=== PATIENT | female | born 1965 | race Caucasian/White ===

== ENCOUNTER 2016-10-13 18:40 | Emergency (ER) | payer BC, OTHER ==
[2016-10-13 18:50] VITALS: RESP 18
--- NOTE | 2016-10-13 19:26 | EDPHY ---
General Narrative: CHIEF COMPLAINT: Headache, laceration HISTORY OF PRESENT ILLNESS: REVIEW OF SYSTEMS: Ten systems reviewed and are negative unless otherwise noted in the HPI EXAMINATION General Appearance: Alert, no distress Head: normocephalic. 1.5 cm laceration of the forehead, midline Longitudinal. No foreign body. No visualization of the galea or skull Eyes: Pupils equal and round, no conjunctival pallor or injection ENT, Mouth: Mucous membranes moist Neck: Normal inspection, supple, non-tender Respiratory: no retractions or distress Cardiovascular: regular rate. Pulses intact distally. Back: non-tender, no bony abnormalities Neurological: A&O, nonfocal, normal gait Skin: Warm and dry, no rash Extremities: Nontender, no pedal edema Psychiatric: Mood and affect normal DIFFERENTIAL DIAGNOSES: Including but not limited to MDM: 7:25 p.m. forehead hematoma after moderate blunt trauma to the head. There is a facial hematoma with small laceration. Difficult to fully address the wound has does have clotted blood. I have injected topical anesthesia we can clean and I will re-evaluate the wound. CT scan has been ordered due to moderate mechanism with severe headache and hematoma present. There is no Rodriges sign, raccoon eyes or depression. 8:30 p.m. notified by Radiology of the CT scan of the head is normal. I have closed the laceration without complication. I have discussed wound care. She is to return here Thursday or Thursday for suture removal. Tetanus is up-to-date as of today now. work note provided for tomorrow. 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 She verbalized understanding of this. Discharged home neurovascular intact in stable condition PROCEDURE: Laceration repair Consent: Verbal Location: Forehead Length of repair: 1.5 cm Complexity: simple Layer involvement: single Anesthesia: local, 5 mL of lidocaine 1% with epinephrine Irrigation: Extensive Debridement: none Procedure description: after anesthesia the wound bed was irrigated and explored. No foreign body. Wound was closed with 6-0 Prolene with good approximation and good hemostasis. Tolerated well. No complications. Suture/Staple material: 6-0 Prolene, 3 simple interrupted sutures. Wound care: Routine as discussed Suture/Staple removal: 5-7 Days SUPERVISION: This patient was independently evaluated without the aide of supervising physician. - History Smoking Status: Never smoked - Objective Vital Signs: Initial Vital Signs Temperature (C) 98.1 F 10/13/16 18:45 Heart Rate 109 H 10/13/16 18:45 Respiratory Rate 18 10/13/16 18:45 Blood Pressure 153/108 H 10/13/16 18:45 O2 Sat (%) 97 10/13/16 18:45 O2 Delivery Mode Room Air Allergies/Adverse Reactions: mushroom Allergy (Verified 10/13/16 18:45) Sulfa (Sulfonamide Antibiotics) Allergy (Verified 10/13/16 18:45) Home Medications: Medication Instructions Recorded NK [No Known Home Meds] 10/13/16 Medications Given: Discontinued Medications Diphtheria/Tetanus/Acell Pertussis (Boostrix) 0.5 ml IM .ONCE ONE Stop: 10/13/16 19:29 Last Admin: 10/13/16 19:34 Dose: 0.5 ml Departure - Departure Disposition: Home, Routine, Self-Care Clinical Impression: Closed head injury Qualifiers: Encounter type: initial encounter Qualified Code(s): S09.90XA - Unspecified injury of head, initial encounter Forehead laceration Qualifiers: Encounter type: initial encounter Qualified Code(s): S01.81XA - Laceration without foreign body of other part of head, initial encounter Condition: Good Instructions: Hydrocodone/Acetaminophen (By mouth), Care For Your Stitches (ED) , Head Injury (ED) Additional Instructions: follow-up with primary care physician and Dr. Moffett for further care. Return to ER for worsening pain, vomiting or weakness Referrals: Krista Moffett MD [Medical Doctor] - As per Instructions Stand Alone Forms: Work Excuse
[2016-10-13] MEDS ORDERED: TDAP ADULT 0.5 ML INJ (BOOSTRIX) IM ONE (19:28)
[2016-10-13] MEDS ORDERED: HYDROCOD/APAP 5/325 PREPACK#6 BTL TAKEHOME ONE (20:25)
[2016-10-13] MEDS ORDERED: HYDROCODONE/APAP 5/325 TAB PO ONE (20:25)
[2016-10-13 20:42] VITALS: BP 130/90; PULSE 92; TEMP 98.2; O2SAT 96
== END 2016-10-13 20:43 | disposition home or self-care (01) ==
PROC: 0HQ1XZZ Repair Face Skin, External Approach (ICD-10-PCS; principal; 2016-10-13)
DX: S01.81XA Laceration without foreign body of other part of head, initial encounter (principal); Z23 Encounter for immunization; W22.8XXA Striking against or struck by other objects, initial encounter

== ENCOUNTER 2016-10-15 09:05 | Emergency (ER) | payer OTHER ==
--- NOTE | 2016-10-15 09:16 | CPEKG ---
Heart Rate: 104 RR Interval: 577 P-R Interval: 156 QRSD Interval: 104 QT Interval: 348 QTC Interval: 458 P Remlap: 37 QRS Remlap: -34 T Wave Remlap: 36 EKG Severity - OTHERWISE NORMAL ECG - EKG Impression: SINUS TACHYCARDIA EKG Impression: LEFT AXIS DEVIATION Electronically Signed By: Aravind Ayala 15-Oct-2016 12:12:50
[2016-10-15] MEDS ORDERED: LORazepam 2 MG/ML INJ IVP ONE ×2 (09:40→11:39)
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
[2016-10-15 11:04] VITALS: RESP 18
[2016-10-15] MEDS ORDERED: *PHM DO NOT USE-LORazepam 1 MG/ML IV NEWBORN SYR IV ONE (11:36)
[2016-10-15] MEDS ORDERED: LORazepam 2 MG/ML INJ ONE (11:37)
[2016-10-15 11:41] LABS: % IMMATURE GRANULYOCYTES 0.3 % (0.0-1.1); ABSOLUTE IMMATURE GRANULOCYTES 0.03 10^3/uL (0.00-0.10); ADD DIFF? NO; ADD MORPH? NO; ADD SCAN? NO; ATYPICAL LYMPHOCYTE FLAG 0 (0-99); FRAGMENT RBC FLAG 0 (0-99); LEFT SHIFT FLG 0 (0-99); LIPEMIA HEMOLYSIS FLAG 80 (0-99); MEAN CELL HEMOGLOBIN 28.1 pg (27.9-34.1); MEAN CELL HEMOGLOBIN CONCENTR. 32.7 g/dL (32.4-36.7); MEAN PLATELET VOLUME 9.9 fL (8.7-11.7); PLATELET CLUMPS FLAG 10 (0-99); PLATELET COUNT 483 10^3/uL (150-400); RED CELL DISTRIBUTION WIDTH 13.6 % (11.5-15.2)
[2016-10-15 11:47] LABS: ALANINE AMINOTRANSFERASE 70 IU/L (9-52); ALBUMIN 4.8 g/dL (3.5-5.0); ALKALINE PHOSPHATASE 133 IU/L (38-126); ANION GAP 14 mEq/L (8-16); ASPARTATE AMINOTRANSFERASE 58 IU/L (14-46); BILIRUBIN,TOTAL 0.9 mg/dL (0.1-1.4); CALCIUM 10.2 mg/dL (8.5-10.4); CARBON DIOXIDE 23 mEq/l (22-31); CHLORIDE 105 mEq/L (97-110); CREATININE 0.8 mg/dL (0.6-1.0); GLOMERULAR FILTRATION RATE > 60; GLUCOSE 104 mg/dL (70-100); POTASSIUM 4.6 mEq/L (3.5-5.2); SODIUM 142 mEq/L (134-144); TOTAL PROTEIN 8.7 g/dL (6.3-8.2)
[2016-10-15 12:38] VITALS: BP 120/78; PULSE 95; TEMP 97.5; O2SAT 98
== END 2016-10-15 12:38 | disposition home or self-care (01) ==
DX: F41.9 Anxiety disorder, unspecified (principal)
CPT/HCPCS: 96374

== ENCOUNTER 2016-10-19 03:42 | Emergency (ER) | payer OTHER ==
--- NOTE | 2016-10-19 03:53 | EDPHY ---
H & P HPI/ROS: HPI CHIEF COMPLAINT: Ongoing headache, nausea, vomiting, mood swings, anxiety HISTORY OF PRESENT ILLNESS: This patient 51-year-old female significant past medical history for anxiety, was recently here in the emergency room on October 13 after she sustained a head injury. She had her head and door frame. She had a CT scan at that time of her head without any acute intracranial abnormality she had her forehead laceration repaired with sutures. She presents back here in the emergency room at 4 o'clock in the morning with ongoing nausea, blurry vision, mood swings, intermittent vomiting and anxiety. She is concerned she may have a concussion. Of note upon arrival here in the emergency room she appears well nontoxic no acute distress she has a normal neurological exam. She is complaining of anxiety. Past Medical History: Anxiety Past Surgical History: No recent surgical history Social History: Denies daily use drugs alcohol tobacco products Family History: Noncontributory ROS REVIEW OF SYSTEMS: A comprehensive 10 point review of systems is otherwise negative aside from elements mentioned in the history of present illness. Exam Constitutional triage nursing summary reviewed, vital signs reviewed, awake/ alert. Eyes normal conjunctivae and sclera, EOMI, PERRLA. HENT head/neck: midline vertical incision forehead with sutures in place clean dry and intact, otherwise unremarkable normal inspection, atraumatic, moist mucus membranes, no epistaxis, neck supple/ no meningismus, no raccoon eyes. Respiratory clear to auscultation bilaterally, normal breath sounds, no respiratory distress, no wheezing. Cardiovascular rate normal, regular rhythm, no murmur, no edema, distal pulses normal. Gastrointestinal soft, non-tender, no rebound, no guarding, normal bowel sounds, no distension, no pulsatile mass. Genitourinary no CVA tenderness. Musculoskeletal no midline vertebral tenderness, full range of motion, no calf swelling, no tenderness of extremities, no meningismus, good pulses, neurovascularly intact. Skin pink, warm, & dry, no rash, skin atraumatic. Neurologic awake, alert and oriented x 3, AAOx3, moves all 4 extremities equally, motor intact, sensory intact, CN II-XII intact, normal cerebellar, normal vision, normal speech. Psychiatric normal mood/affect. Heme/Lymph/Immune no lymphadenopathy. Differential Diagnosis: includes but is not limited to in a particular order, closed-head injury, concussion, intracranial bleed, nausea vomiting mood swings blurry vision from a closed head injury with concussion Medical Decision Making: plan for this patient should be given p.o. Zofran for nausea, p.o. Ativan 1 mg for anxiety, ibuprofen 800 mg for headache. I explained most likely her symptoms are consistent with concussion like symptoms. She does tell me she has a bad headache for this reason I will do a CT scan of her head giving ongoing headache nausea vomiting to make sure she does not have a evidence of a delayed bleed. It is noted her neurological exam is unremarkable. Re-evaluation: CT scan of the head without IV contrast The results of the study are this is negative for acute intracranial abnormality specifically no bleed The study was read by Dr. Castro. I viewed the images myself on the PACS system. 0437: Re-evaluation at this time this patient is resting comfortably no acute distress. Feels better after 1 mg p.o. Ativan, Zofran and ibuprofen. CT scan shows no acute intracranial abnormality her neurological exam is unremarkable. Her symptoms are consistent with a concussion or closed head injury. I do recommend she follows up with concussion specialist. I referred her to this. Will also give her prescription for nausea medicine. She understands return to the ER she develops any worsening symptoms questions or concerns. 0440: is also noted this patient had sutures placed approximately 6 days ago. She is requesting that we remove them today as there due to come out tomorrow and she would not want come back again to the emergency room to have them out. I did evaluate her midline vertical laceration in her forehead the wound is clean, dry, and intact. It is okay to have the sutures removed at this time. Source: Patient - Medical/Surgical History Hx Asthma: No Hx Chronic Respiratory Disease: No Hx Diabetes: No Hx Cardiac Disease: No Hx Renal Disease: No Hx Cirrhosis: No Hx Alcoholism: No Hx HIV/AIDS: No Hx Splenectomy or Spleen Trauma: No Other PMH: PMH: kidney stones, bronchitis,. PSH: stephen, tubal ligation - Social History Smoking Status: Never smoked Constitutional: Initial Vital Signs Temperature (C) 36.8 C 10/19/16 03:50 Heart Rate 106 H 10/19/16 03:50 Respiratory Rate 22 H 10/19/16 03:50 Blood Pressure 118/91 H 10/19/16 03:50 O2 Sat (%) 94 10/19/16 03:50 O2 Delivery Mode Room Air Allergies/Adverse Reactions: adhesive Allergy (Verified 10/19/16 03:49) mushroom Allergy (Verified 10/15/16 09:07) Sulfa (Sulfonamide Antibiotics) Allergy (Verified 10/15/16 09:07) Home Medications: Medication Instructions Recorded Ondansetron HCl [Zofran] 4 mg PO Q4-6PRN PRN #10 tablet 10/19/16 Medical Decision Making - Data Points Medications Given: Discontinued Medications Ibuprofen (Motrin) 800 mg PO EDNOW ONE Stop: 10/19/16 04:09 Last Admin: 10/19/16 04:16 Dose: 800 mg Lorazepam (Ativan) 1 mg PO ONCE ONE Stop: 10/19/16 04:09 Last Admin: 10/19/16 04:16 Dose: 1 mg Ondansetron HCl (Zofran Odt) 4 mg PO EDNOW ONE Stop: 10/19/16 04:09 Last Admin: 10/19/16 04:16 Dose: 4 mg Departure - Departure Disposition: Home, Routine, Self-Care Clinical Impression: Concussion Qualifiers: Encounter type: initial encounter Loss of consciousness presence/duration: without LOC Qualified Code(s): S06.0X0A - Concussion without loss of consciousness, initial encounter Head injury Qualifiers: Encounter type: initial encounter Qualified Code(s): S09.90XA - Unspecified injury of head, initial encounter Condition: Good Instructions: Concussion (ED) Referrals: NONE *PRIMARY CARE P,. [Primary Care Provider] - As per Instructions Krista Moffett MD [Medical Doctor] - As per Instructions Prescriptions: Ondansetron HCl [Zofran] 4 mg PO Q4-6PRN PRN #10 tablet PRN Reason: Nausea/Vomiting, Use 1st
[2016-10-19 03:55] VITALS: BP 118/91; PULSE 106; RESP 22; TEMP 98.2; O2SAT 94
[2016-10-19] MEDS ORDERED: LORazepam 1 MG TAB PO ONE (04:08)
[2016-10-19] MEDS ORDERED: ONDANSETRON DISINTEGRATING 4 MG TAB PO ONE (04:08)
[2016-10-19] MEDS ORDERED: IBUPROFEN 200 MG TAB PO ONE (04:08)
== END 2016-10-19 04:54 | disposition home or self-care (01) ==
DX: S06.0X0D Concussion without loss of consciousness, subsequent encounter (principal); X58.XXXD Exposure to other specified factors, subsequent encounter

== ENCOUNTER 2016-10-31 13:23 | Emergency (ER) | payer OTHER ==
[2016-10-31 13:30] VITALS: TEMP 98.1
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
[2016-10-31] MEDS ORDERED: IBUPROFEN 600 MG TAB PO ONE ×2 (13:47→13:49)
[2016-10-31] MEDS ORDERED: SILVER SULFADIAZINE 50 GM JAR TP ONE (13:58)
[2016-10-31 14:24] VITALS: BP 126/94; PULSE 88; RESP 16; O2SAT 94
== END 2016-10-31 14:23 | disposition home or self-care (01) ==
DX: T24.101A Burn of first degree of unspecified site of right lower limb, except ankle and foot, initial encounter (principal); L03.115 Cellulitis of right lower limb; X76.XXXA Intentional self-harm by smoke, fire and flames, initial encounter

== ENCOUNTER → 2017-01-22 | Outpatient (CLI) | payer OTHER | LOC: BMCIMAGING 15:36 | PROVIDERS: ATTEND Podiatrist Foot & Ankle Surgery | DX: M79.671 Pain in right foot (principal); M77.31 Calcaneal spur, right foot ==

== ENCOUNTER 2017-04-26 09:32 | Emergency (ER) | payer OTHER ==
--- NOTE | 2017-04-26 11:24 | EDPHY ---
H & P Smoking Status: Never smoked Time Seen by Provider: 04/26/17 09:49 HPI/ROS: CHIEF COMPLAINT: Right ankle pain HISTORY OF PRESENT ILLNESS: 51-year-old female presents to the emergency department with pain in her right ankle. She has known heel spurs and has had cortisone injections. She states that she is having physical therapy and had some type of electrode patch that was placed to the lateral aspect of her right ankle about 3 weeks ago and she thinks that this may be causing now pain in her right ankle. She denies any known trauma or injury although it started abruptly while she was working walking down some stairs. ROS: Denies pain in her right calf. Denies pain in her knee or hip. (Alannahcody Kelly Holcomb) Past Medical/Surgical History: Kidney stones, bronchitis, cholecystectomy, tubal ligation (Lena Evansmandy Holcomb) Social History: Single and lives in [place] (Lena Evansmandy Holcomb) Physical Exam: On examination mild swelling noted to the lateral aspect of her right ankle. There is no redness or warmth or signs of infection. No signs of cellulitis. She has full range of motion of her right ankle although does have some pain with inversion of the ankle. No obvious ligament instability. No signs of septic joint. Normal sensation to light touch with normal 2 point discrimination. Strong dorsalis pedis pulse on the dorsal aspect of the right foot. (Jacklyn Evansa Zhang) Constitutional: Initial Vital Signs Temperature (C) 37.2 C 04/26/17 09:35 Heart Rate 83 04/26/17 09:35 Respiratory Rate 18 04/26/17 09:35 Blood Pressure 126/88 H 04/26/17 09:35 O2 Sat (%) 97 04/26/17 09:35 O2 Delivery Mode Room Air Allergies/Adverse Reactions: adhesive Allergy (Mild, Verified 04/26/17 09:40) blistering at site mushroom Allergy (Mild, Verified 04/26/17 09:40) GI upset Sulfa (Sulfonamide Antibiotics) Allergy (Mild, Verified 04/26/17 09:40) Rash Home Medications: Medication Instructions Recorded NK [No Known Home Meds] 04/26/17 MDM/Departure - MDM Imaging: I viewed and interpreted images myself - MDM Procedures: Patient was placed in Velcro ankle stirrup splint and examined post application in 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 (Klely Evans) ED Course/Re-evaluation: Velcro ankle stirrup splint for comfort and support. Ice and elevate to help relieve swelling. Ibuprofen 600 mg every 8 hours as needed for pain. Follow up with orthopedic surgeon this week to recheck. (Kelly Evans) The patient was evaluated and managed by the Physician Cane Loader/ Nurse Practitioner. My co-signature indicates that I have reviewed this chart and I agree with the findings and plan of care as documented. I am the secondary supervising physician. (Gabriela Del Real) - Depart Disposition: Home, Routine, Self-Care Clinical Impression: Right ankle sprain Qualifiers: Encounter type: initial encounter Involved ligament of ankle: unspecified ligament Qualified Code(s): S93.401A - Sprain of unspecified ligament of right ankle, initial encounter Condition: Good Instructions: Ankle Sprain (ED) Additional Instructions: Ibuprofen 600 mg every 8 hours as needed for pain. Weightbear as tolerated. Follow up with orthopedic surgeon this week to recheck. Return if he developed increased swelling, redness or warmth, or any other concerns. Stand Alone Forms: Work Excuse Referrals: Johnny Vega MD [Medical Doctor] - 5-7 days, call for appt. (Orthopedic surgeon on-call)
[2017-04-26 11:31] VITALS: BP 113/80; PULSE 78; RESP 16; TEMP 97.9; O2SAT 95
== END 2017-04-26 11:45 | disposition home or self-care (01) ==
DX: S93.401A Sprain of unspecified ligament of right ankle, initial encounter (principal); X58.XXXA Exposure to other specified factors, initial encounter
CPT/HCPCS: L4350

== ENCOUNTER 2017-05-08 23:22 | Emergency (ER) | payer OTHER ==
[2017-05-08 23:28] VITALS: RESP 18; O2SAT 96
[2017-05-09] MEDS ORDERED: LIDOCAINE 5% 1 EA PATCH TD ONE
--- NOTE | 2017-05-09 00:04 | EDPHY ---
H & P Stated Complaint: LOWER BACK INJURY Time Seen by Provider: 05/08/17 23:43 HPI/ROS: HPI The patient presents with lower back pain which began at approximately 9:00 p.m. 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 She had acute onset of lower back pain which has been constant ever since, worse with movement, it radiates down her right leg to her knee. She denies any numbness, tingling, urinary or bowel incontinence, weakness of the leg. She does have a prior history of sciatica. She saw a chiropractor just yesterday for this. She has been taking ibuprofen and Aleve for pain. Just prior to arrival she took [employer] and drink a beer to help her pain. REVIEW OF SYSTEMS Constitutional: No fever, no chills. Eyes: No discharge. ENT: No sore throat. Cardiovascular: No chest pain, no palpitations. Respiratory: No cough, no shortness of breath. Gastrointestinal: No abdominal pain, no vomiting. Genitourinary: No hematuria. Musculoskeletal: Positive for back pain. Skin: No rashes. Neurological: No headache. PMHx: Sciatica PHYSICAL General Appearance: Alert, no distress Eyes: Pupils equal and round no pallor or injection ENT, Mouth: Mucous membranes moist Respiratory: Breathing comfortably Back: There is tenderness at L4-L5 at the midline and in the paraspinal region on the left which continues to her sciatic notch Neurological: A&O, negative straight leg raise, sensation is intact to light touch to her lower extremities bilaterally, she has 5/5 strength of her lower extremities which is symmetric Skin: Warm and dry, no rashes Musculoskeletal: Neck is supple non tender Extremities: symmetrical, full range of motion Psychiatric: Patient is oriented X 3, there is no agitation Source: Patient Exam Limitations: No limitations - Personal History LMP (Females 10-55): Over 28 Days Ago Current Tetanus/Diphtheria Vaccine: Yes Tetanus Vaccine Date: 10/13/16 - Medical/Surgical History Hx Asthma: No Hx Chronic Respiratory Disease: No Hx Diabetes: No Hx Cardiac Disease: No Hx Renal Disease: No Hx Cirrhosis: No Hx Alcoholism: No Hx HIV/AIDS: No Hx Splenectomy or Spleen Trauma: No Other PMH: PMH: kidney stones, bronchitis, anxiety,bone spurs R heel. PSH: stephen, tubal ligation - Social History Smoking Status: Never smoked Constitutional: Initial Vital Signs Temperature (C) 37.5 C 05/08/17 23:23 Heart Rate 94 05/08/17 23:23 Respiratory Rate 18 05/08/17 23:23 Blood Pressure 149/91 H 05/08/17 23:23 O2 Sat (%) 96 05/08/17 23:23 O2 Delivery Mode Room Air Allergies/Adverse Reactions: adhesive Allergy (Mild, Verified 04/26/17 09:40) blistering at site mushroom Allergy (Mild, Verified 04/26/17 09:40) GI upset Sulfa (Sulfonamide Antibiotics) Allergy (Mild, Verified 04/26/17 09:40) Rash Home Medications: Medication Instructions Recorded NK [No Known Home Meds] 04/26/17 Medical Decision Making Differential Diagnosis: This is a 51-year-old female with history of sciatica who presents with acute onset of lower back pain which radiates down her right leg since bending over to picker packer a cooler earlier this evening. She has no neurologic deficits on exam, has no red flag features. Differential diagnosis includes sciatica, disc herniation, muscle spasm. I doubt cauda equina. In the emergency department, the patient was given lidocaine transdermal patch is and Toradol with some improvement in her symptoms. We discussed treatment for lower back pain. She is already being followed by physical therapy. I have instructed her to take ibuprofen or Aleve with Tylenol around the clock for pain control, use rest, ice or heat. She will be discharged with follow up with her primary care doctor. Departure - Departure Disposition: Home, Routine, Self-Care Clinical Impression: Lower back pain Qualifiers: Chronicity: acute Back pain laterality: right Sciatica presence: with sciatica Sciatica laterality: sciatica of right side Qualified Code(s): M54.41 - Lumbago with sciatica, right side Condition: Good Instructions: Low Back Strain (ED), Lower Back Exercises (ED), Sciatica (ED) Referrals: Lora Beatty PA [Primary Care Provider] - As per Instructions
[2017-05-09] MEDS ORDERED: KETOROLAC 15 MG/1 ML SDV IVP ONE ×2 (00:09)
[2017-05-09] MEDS ORDERED: LIDOCAINE 5% 1 EA PATCH TD SCH (00:15)
[2017-05-09 01:03] VITALS: BP 113/83; PULSE 86; TEMP 98.1
[2017-05-09] MEDS ORDERED: PATCH REMOVAL 1 EA PATCH TD SCH ×2 (21:00)
== END 2017-05-09 01:04 | disposition home or self-care (01) ==
DX: M54.41 Lumbago with sciatica, right side (principal)
CPT/HCPCS: 96374; J1885

== ENCOUNTER 2017-07-01 00:37 | Emergency (ER) | payer SELFPAY ==
--- NOTE | 2017-07-01 00:43 | EDPHY ---
H & P HPI/ROS: HPI CHIEF COMPLAINT: "facial droop on left side, Drooling both sides of mouth" HISTORY OF PRESENT ILLNESS: This patient is a 51-year-old female significant past medical history for anxiety, previous head injury and sciatica she presents to the emergency room by private vehicle with 3 days of what she believes is a facial droop on left side and drooling out both sides of her mouth. Upon arrival to the emergency room she appears well nontoxic her neurological exam is unremarkable. All of her cranial nerves are intact. She has no focal numbness or tingling or weakness. As for her facial droop I do not appreciate any facial droop on exam. She is able to raise her eyebrows symmetrically, able does close her eyes very tightly an open them appropriately , able to have a good smile was symmetrical mouth opening. Additionally puff out her cheeks appropriately. She is not drooling on exam. There is no tongue deviation. Sensation is intact. No evidence of facial weakness or Lucas's palsy on exam. However the patient's nasal oral crease on the left is more prominent than the right. She tells me this is not normally like that. She denies any facial pain or trauma to her face or swelling. Denies dental pain. She denies any other neurological complaints. Specifically headache neck pain numbness or tingling focal weakness chest pain or shortness of breath. Past Medical History: Includes anxiety, head injury, sciatica Past Surgical History: Cholecystectomy, tubal Social History: Denies drugs alcohol tobacco. Family History: Noncontributory ROS REVIEW OF SYSTEMS: A comprehensive 10 point review of systems is otherwise negative aside from elements mentioned in the history of present illness. Exam Constitutional triage nursing summary reviewed, vital signs reviewed, awake/ alert. Eyes normal conjunctivae and sclera, EOMI, PERRLA. HENT normal inspection, atraumatic, moist mucus membranes, no epistaxis, neck supple/ no meningismus, no raccoon eyes. Respiratory clear to auscultation bilaterally, normal breath sounds, no respiratory distress, no wheezing. Cardiovascular rate normal, regular rhythm, no murmur, no edema, distal pulses normal. Gastrointestinal soft, non-tender, no rebound, no guarding, normal bowel sounds, no distension, no pulsatile mass. Genitourinary no CVA tenderness. Musculoskeletal no midline vertebral tenderness, full range of motion, no calf swelling, no tenderness of extremities, no meningismus, good pulses, neurovascularly intact. Skin pink, warm, & dry, no rash, skin atraumatic. Neurologic awake, alert and oriented x 3, AAOx3, moves all 4 extremities equally, motor intact, sensory intact, CN II-XII intact, normal cerebellar, normal vision, normal speech. Cranial nerves intact. Facial nerves intact. No facial weakness on exam. Sensation intact. The nasal oral fold on the left side of the mouth is more prominent on the left side of the face than right. Otherwise unremarkable exam. Psychiatric normal mood/affect. Heme/Lymph/Immune no lymphadenopathy. Differential Diagnosis: Includes but is not limited to in a particular order TIA, CVA, intracranial bleed, tumor, Lucas's palsy, infection of the face, facial fold asymmetry Medical Decision Making: Plan for this patient worse case scenarios rule out stroke, will proceed with MRI of the brain to rule out small infarct. However clinically on exam I do not see a significant stroke-like symptom. Will check basic blood work. Re-evaluate. Re-evaluation: 0404: Patient resting comfortably no acute distress. No progression of any neurological symptoms here in emergency room. I again do not appreciate any facial droop or weakness. Patient's MRI review to me by Dr. Landon Salomon. Negative for acute stroke or bleed. Essentially unremarkable MRI. Chronic right-sided maxillary sinus disease. I have updated patient about her MRI results she feels comfortable being discharged. She does understand return emergency room if she has any further symptoms worsening symptoms questions or concerns includes focal weakness numbness or tingling. Source: Patient - Personal History Tetanus Vaccine Date: 10/13/16 - Medical/Surgical History Hx Asthma: No Hx Chronic Respiratory Disease: No Hx Diabetes: No Hx Cardiac Disease: No Hx Renal Disease: No Hx Cirrhosis: No Hx Alcoholism: No Hx HIV/AIDS: No Hx Splenectomy or Spleen Trauma: No Other PMH: PMH: kidney stones, bronchitis, anxiety,bone spurs R heel. PSH: stephen, tubal ligation - Social History Smoking Status: Never smoked Constitutional: Initial Vital Signs Temperature (C) 36.9 C 07/01/17 00:39 Heart Rate 100 07/01/17 00:39 Respiratory Rate 18 07/01/17 00:39 Blood Pressure 121/98 H 07/01/17 00:39 O2 Sat (%) 95 07/01/17 00:39 O2 Delivery Mode Room Air Allergies/Adverse Reactions: adhesive Allergy (Mild, Verified 07/01/17 00:42) blistering at site mushroom Allergy (Mild, Verified 07/01/17 00:42) GI upset Sulfa (Sulfonamide Antibiotics) Allergy (Mild, Verified 07/01/17 00:42) Rash Home Medications: Medication Instructions Recorded NK [No Known Home Meds] 04/26/17 Medical Decision Making - Data Points Laboratory Results: Laboratory Results 07/01/17 01:19 07/01/17 01:19 07/01/17 07/01/17 01:19 01:19 WBC 9.03 10^3/uL 10^3/uL (3.80-9.50) RBC 5.06 10^6/uL 10^6/uL (4.18-5.33) Hgb 14.5 g/dL g/dL (12.6-16.3) Hct 42.9 % % (38.0-47.0) MCV 84.8 fL fL (81.5-99.8) MCH 28.7 pg pg (27.9-34.1) MCHC 33.8 g/dL g/dL (32.4-36.7) RDW 13.1 % % (11.5-15.2) Plt Count 345 10^3/uL 10^3/uL (150-400) MPV 9.6 fL fL (8.7-11.7) Neut % (Auto) 52.6 % % (39.3-74.2) Lymph % (Auto) 36.0 % % (15.0-45.0) Cataño % (Auto) 6.3 % % (4.5-13.0) Eos % (Auto) 3.8 % % (0.6-7.6) Baso % (Auto) 1.0 % % (0.3-1.7) Nucleat RBC Rel Count 0.0 % % (0.0-0.2) Absolute Neuts (auto) 4.75 10^3/uL 10^3/uL (1.70-6.50) Absolute Lymphs (auto) 3.25 10^3/uL H 10^3/uL (1.00-3.00) Absolute Monos (auto) 0.57 10^3/uL 10^3/uL (0.30-0.80) Absolute Eos (auto) 0.34 10^3/uL 10^3/uL (0.03-0.40) Absolute Basos (auto) 0.09 10^3/uL 10^3/uL (0.02-0.10) Absolute Nucleated RBC 0.00 10^3/uL 10^3/uL (0-0.01) Immature Gran % 0.3 % % (0.0-1.1) Immature Gran # 0.03 10^3/uL 10^3/uL (0.00-0.10) Sodium 142 mEq/L mEq/L (134-144) Potassium 3.8 mEq/L mEq/L (3.5-5.2) Chloride 105 mEq/L mEq/L (97-110) Carbon Dioxide 24 mEq/l mEq/l (22-31) Anion Gap 13 mEq/L mEq/L (8-16) BUN 13 mg/dL mg/dL (7-23) Creatinine 0.9 mg/dL mg/dL (0.6-1.0) Estimated GFR > 60 Glucose 95 mg/dL mg/dL (70-100) Calcium 9.4 mg/dL mg/dL (8.5-10.4) Medications Given: Discontinued Medications Lorazepam (Ativan Injection) 1 mg IVP EDNOW ONE Stop: 07/01/17 03:16 Last Admin: 07/01/17 03:15 Dose: 1 mg Departure - Departure Disposition: Home, Routine, Self-Care Clinical Impression: Facial pain Condition: Good Instructions: Atypical Facial Pain (ED) Additional Instructions: 1. Return emergency room if any worsening symptoms questions or concerns. Specifically return emergency room if you have numbness or tingling or weakness. Or new complaints. 2. Additionally follow up with her primary care doctor. Referrals: CONSTANTINE ARBOLEDA [Other] - As per Instructions
[2017-07-01 01:23] LABS: % IMMATURE GRANULYOCYTES 0.3 % (0.0-1.1); ABSOLUTE IMMATURE GRANULOCYTES 0.03 10^3/uL (0.00-0.10); ADD DIFF? NO; ADD MORPH? NO; ADD SCAN? NO; ATYPICAL LYMPHOCYTE FLAG 0 (0-99); FRAGMENT RBC FLAG 0 (0-99); HEMATOCRIT 42.9 % (38.0-47.0); HEMOGLOBIN 14.5 g/dL (12.6-16.3); LEFT SHIFT FLG 0 (0-99); LIPEMIA HEMOLYSIS FLAG 90 (0-99); MEAN CELL HEMOGLOBIN 28.7 pg (27.9-34.1); MEAN CELL HEMOGLOBIN CONCENTR. 33.8 g/dL (32.4-36.7); MEAN CELL VOLUME 84.8 fL (81.5-99.8); MEAN PLATELET VOLUME 9.6 fL (8.7-11.7); PLATELET CLUMPS FLAG 40 (0-99); PLATELET COUNT 345 10^3/uL (150-400); RED BLOOD CELL COUNT 5.06 10^6/uL (4.18-5.33); RED CELL DISTRIBUTION WIDTH 13.1 % (11.5-15.2)
[2017-07-01 01:42] LABS: ANION GAP 13 mEq/L (8-16); CALCIUM 9.4 mg/dL (8.5-10.4); CARBON DIOXIDE 24 mEq/l (22-31); CHLORIDE 105 mEq/L (97-110); CREATININE 0.9 mg/dL (0.6-1.0); GLOMERULAR FILTRATION RATE > 60; GLUCOSE 95 mg/dL (70-100); POTASSIUM 3.8 mEq/L (3.5-5.2); SODIUM 142 mEq/L (134-144)
[2017-07-01] MEDS ORDERED: LORazepam 2 MG/ML INJ ONE (03:04)
[2017-07-01] MEDS ORDERED: LORazepam 2 MG/ML INJ IVP ONE (03:15)
[2017-07-01 03:44] VITALS: RESP 16
[2017-07-01 04:19] VITALS: BP 123/88; PULSE 100; TEMP 99; O2SAT 92
== END 2017-07-01 04:18 | disposition home or self-care (01) ==
DX: R51 Headache (principal)
CPT/HCPCS: 96374; J2060

== ENCOUNTER 2017-11-25 06:04 | Emergency (ER) | payer OTHER ==
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
[2017-11-25] MEDS ORDERED: predniSONE 20 MG TAB PO ONE (06:20)
[2017-11-25] MEDS ORDERED: IPRATROPIUM/ALBUTEROL 3 ML DEYVIAL IH ONE (06:20)
[2017-11-25 07:22] VITALS: BP 126/80
== END 2017-11-25 07:22 | disposition home or self-care (01) ==
DX: J20.8 Acute bronchitis due to other specified organisms (principal)
CPT/HCPCS: J7512

== ENCOUNTER → 2017-12-31 | Outpatient (CLI) | payer OTHER | LOC: CIMAGING 12:47 | PROVIDERS: ATTEND Internal Medicine | DX: J40 Bronchitis, not specified as acute or chronic (principal); J98.11 Atelectasis; R10.11 Right upper quadrant pain | CPT/HCPCS: 71046-PO ==

== ENCOUNTER → 2018-01-22 | Outpatient (CLI) | payer OTHER | LOC: FIMAGING 13:58 | PROVIDERS: ATTEND Internal Medicine | DX: N20.0 Calculus of kidney (principal) ==

== ENCOUNTER 2018-03-08 12:24 | Observation (INO) | payer OTHER ==
[2018-03-08] MEDS ORDERED: NS 1,000 ML IV ONE ×2 (12:36→13:35)
--- NOTE | 2018-03-08 12:37 | EDPHY ---
General Time Seen by Provider: 03/08/18 12:34 Narrative: CHIEF COMPLAINT: UTI, flank pain HISTORY OF PRESENT ILLNESS: Patient presents with complaints of right flank pain and urinary tract infection. She says she has had some right flank pain over the past 1-2 weeks. It has been mild to moderate. It comes and goes. Over the past few days it has been increasingly painful. She went to urgent care yesterday, which she was diagnosed with urinary tract infection. She was prescribed Macrobid. She took a dose yesterday morning yesterday evening. Over the course of the evening into this morning, she has increasing pain is now severe. Nausea. Fever at home with T-max of a 102. She has felt very chilled and diaphoretic. She has had no chest pain or shortness of breath. Some mild urinary discomfort. No bright red blood in the urine. She was given information to see a urologist but has not yet done so. She was told she a right-sided kidney stones in January by CT scan. No other associated complaints or modifying factors. REVIEW OF SYSTEMS: Ten systems reviewed and are negative unless otherwise noted in the HPI PCP: [facility] SPECIALISTS: None PAST MEDICAL HISTORY: Cholecystitis, UTI, renal colic, bronchitis, anxiety, bone spurs PAST SURGICAL HISTORY: Cholecystectomy, tubal ligation SOCIAL HISTORY: Nonsmoker. Occasional alcohol use. Works at [employer]. Lives independently FAMILY HISTORY: Noncontributory EXAMINATION General Appearance: Alert, no distress. Well-developed well-nourished Head: normocephalic, atraumatic Eyes: Pupils equal and round, no conjunctival pallor or injection ENT, Mouth: Mucous membranes moist Neck: Normal inspection, supple, non-tender Respiratory: Lungs are clear to auscultation Cardiovascular: Tachycardic rate. Regular rhythm. No Gastrointestinal: Obese Abdomen with difficult examination. No obvious distention or tympany. No guarding. There is right CVA tenderness. Back: non-tender, no bony abnormalities Neurological: A&O, nonfocal, normal gait Skin: Warm and dry, no rash Extremities: Nontender, no pedal edema Psychiatric: Mood and affect normal DIFFERENTIAL DIAGNOSES: Including but not limited to pyelonephritis, renal colic, infected nephrolithiasis, ureterolithiasis, colitis, diverticulitis MDM: 12:40 p.m. Right flank pain with reports of renal calculi, fever at home, diaphoresis and worsening symptoms despite starting Macrobid yesterday. She is tachycardic but afebrile. She is not tachypneic. She is diaphoretic. I have ordered laboratory studies including lactic acid and blood cultures. Will also obtain urinalysis and culture. IV fluid be administered. I have ordered pain medication once the verify her kidney function. 1:30 p.m. CBC is normal without leukocytosis. Chemistry unremarkable with normal creatinine. Notified by radiologist. Renal ultrasound findings show no hydronephrosis or evidence of perinephric stranding. Patient re-evaluated. She still complaining of right-sided pain and mildly tachycardic. I discussed with Dr. Bernabe. He recommends IV Rocephin, IV fluid and admission to the hospital for observation for pyelonephritis. 1:40 p.m. I have discussed this plan with the patient she agrees to proceed with admission. 1:50 p.m. Case discussed with hospitalist Broko Franco. Patient will be admitted to Dr. Kumar. She is admitted in stable condition. SUPERVISION: Patient was independently examined, but I discussed the case with my secondary supervising physician Dr. Bernabe - Diagnostics Imaging Results: Imaging Impressions Abdomen/Pelvis Ultrasound 03/08/18 12:47 Impression: 1. No hydronephrosis perinephric fluid collection. 2. Right nephrolithiasis. Findings discussed with Emergency Department physician blood and plasma laboratory assistant, Julian Lopez at 03/08/2018 13:33. - History Smoking Status: Never smoked - Objective Vital Signs: Initial Vital Signs Temperature (C) 98.1 F 03/08/18 12:27 Heart Rate 110 H 03/08/18 12:27 Respiratory Rate 18 03/08/18 12:27 Blood Pressure 128/85 H 03/08/18 12:27 O2 Sat (%) 94 03/08/18 12:27 O2 Delivery Mode Room Air Allergies/Adverse Reactions: adhesive Allergy (Mild, Verified 03/08/18 12:26) blistering at site mushroom Allergy (Mild, Verified 03/08/18 12:26) GI upset Sulfa (Sulfonamide Antibiotics) Allergy (Mild, Verified 03/08/18 12:26) Rash Home Medications: Medication Instructions Recorded Macrobid 03/08/18 Laboratory Results: Laboratory Results 03/08/18 13:00 03/08/18 13:00 03/08/18 03/08/18 03/08/18 13:00 13:00 13:00 WBC 5.89 10^3/uL 10^3/uL (3.80-9.50) RBC 5.39 10^6/uL H 10^6/uL (4.18-5.33) Hgb 14.9 g/dL g/dL (12.6-16.3) Hct 44.9 % % (38.0-47.0) MCV 83.3 fL fL (81.5-99.8) MCH 27.6 pg L pg (27.9-34.1) MCHC 33.2 g/dL g/dL (32.4-36.7) RDW 12.9 % % (11.5-15.2) Plt Count 333 10^3/uL 10^3/uL (150-400) MPV 9.1 fL fL (8.7-11.7) Neut % (Auto) 80.2 % H % (39.3-74.2) Lymph % (Auto) 10.9 % L % (15.0-45.0) [place] % (Auto) 6.6 % % (4.5-13.0) Eos % (Auto) 1.0 % % (0.6-7.6) Baso % (Auto) 0.8 % % (0.3-1.7) Nucleat RBC Rel Count 0.0 % % (0.0-0.2) Absolute Neuts (auto) 4.72 10^3/uL 10^3/uL (1.70-6.50) Absolute Lymphs (auto) 0.64 10^3/uL L 10^3/uL (1.00-3.00) Absolute Monos (auto) 0.39 10^3/uL 10^3/uL (0.30-0.80) Absolute Eos (auto) 0.06 10^3/uL 10^3/uL (0.03-0.40) Absolute Basos (auto) 0.05 10^3/uL 10^3/uL (0.02-0.10) Absolute Nucleated RBC 0.00 10^3/uL 10^3/uL (0-0.01) Immature Gran % 0.5 % % (0.0-1.1) Immature Gran # 0.03 10^3/uL 10^3/uL (0.00-0.10) VBG Lactic Acid 0.9 mmol/L mmol/L (0.7-2.1) Sodium 135 mEq/L mEq/L (135-145) Potassium 4.1 mEq/L mEq/L (3.3-5.0) Chloride 104 mEq/L mEq/L (97-110) Carbon Dioxide 25 mEq/l mEq/l (22-31) Anion Gap 6 mEq/L L mEq/L (8-16) BUN 8 mg/dL mg/dL (7-23) Creatinine 0.7 mg/dL mg/dL (0.6-1.0) Estimated GFR > 60 Glucose 96 mg/dL mg/dL (70-100) Calcium 9.1 mg/dL mg/dL (8.5-10.4) Total Bilirubin 0.8 mg/dL mg/dL (0.1-1.4) Conjugated Bilirubin 0.2 mg/dL mg/dL (0.0-0.5) Unconjugated Bilirubin 0.6 mg/dL mg/dL (0.0-1.1) AST 32 IU/L IU/L (14-46) ALT 33 IU/L IU/L (9-52) Alkaline Phosphatase 113 IU/L IU/L (38-126) Total Protein 6.9 g/dL g/dL (6.3-8.2) Albumin 3.7 g/dL g/dL (3.5-5.0) Lipase 64 IU/L IU/L (23-300) Urine Color Urine Appearance Urine pH Ur Specific [place] Urine Protein Urine Ketones Urine Blood Urine Nitrate Urine Bilirubin Urine Urobilinogen Ur Leukocyte Esterase Urine RBC Urine WBC Ur Epithelial Cells Urine Bacteria Urine Mucus Urine Glucose 03/08/18 12:37 WBC RBC Hgb Hct MCV MCH MCHC RDW Plt Count MPV Neut % (Auto) Lymph % (Auto) [place] % (Auto) Eos % (Auto) Baso % (Auto) Nucleat RBC Rel Count Absolute Neuts (auto) Absolute Lymphs (auto) Absolute Monos (auto) Absolute Eos (auto) Absolute Basos (auto) Absolute Nucleated RBC Immature Gran % Immature Gran # VBG Lactic Acid Sodium Potassium Chloride Carbon Dioxide Anion Gap BUN Creatinine Estimated GFR Glucose Calcium Total Bilirubin Conjugated Bilirubin Unconjugated Bilirubin AST ALT Alkaline Phosphatase Total Protein Albumin Lipase Urine Color YELLOW Urine Appearance HAZY Urine pH 7.0 (5.0-7.5) Ur Specific [place] 1.009 (1.002-1.030) Urine Protein NEGATIVE (NEGATIVE) Urine Ketones NEGATIVE (NEGATIVE) Urine Blood 2+ H (NEGATIVE) Urine Nitrate NEGATIVE (NEGATIVE) Urine Bilirubin NEGATIVE (NEGATIVE) Urine Urobilinogen NEGATIVE EU EU (0.2-1.0) Ur Leukocyte Esterase TRACE H (NEGATIVE) Urine RBC 50-182 /hpf H /hpf (0-3) Urine WBC 3-5 /hpf H /hpf (0-3) Ur Epithelial Cells 1+ /lpf /lpf (NONE-1+) Urine Bacteria 3+ /hpf H /hpf (NONE SEEN) Urine Mucus TRACE /lpf /lpf (NONE-1+) Urine Glucose NEGATIVE (NEGATIVE) Medications Given: Ceftriaxone Sodium/Dextrose (Rocephin 1 Gm (Premix)) 50 mls @ 100 mls/hr IV EDNOW ONE PRN Reason: Protocol Stop: 03/08/18 14:04 Last Admin: 03/08/18 13:45 Dose: 50 mls Discontinued Medications Sodium Chloride (Ns) 1,000 mls @ 0 mls/hr IV EDNOW ONE; Wide Open PRN Reason: Protocol Stop: 03/08/18 12:37 Last Admin: 03/08/18 12:58 Dose: 1,000 mls Sodium Chloride (Ns) 1,000 mls @ 0 mls/hr IV EDNOW ONE; Wide Open PRN Reason: Protocol Stop: 03/08/18 13:36 Last Admin: 03/08/18 13:45 Dose: 1,000 mls Ketorolac Tromethamine (Toradol) 30 mg IVP EDNOW ONE Stop: 03/08/18 13:36 Last Admin: 03/08/18 13:47 Dose: 30 mg Departure - Departure Disposition: [facility] Inpatient Acute Clinical Impression: Acute pyelonephritis, Flank pain Condition: Good Referrals: ISAAC COOK [Non Staff Provider (MD)] - As per Instructions
[2018-03-08 13:12] LABS: PLATELET COUNT 333 10^3/uL (150-400)
[2018-03-08] MEDS ORDERED: KETOROLAC 30 MG/1 ML SDV IVP ONE (13:35)
[2018-03-08] MEDS ORDERED: ONDANSETRON DISINTEGRATING 4 MG TAB PO PRN (14:51)
[2018-03-08] MEDS ORDERED: ALBUTEROL 60 PUFFS/8 GM MDI IH PRN (14:53)
[2018-03-08] MEDS: ONDANSETRON 4 MG/2 ML VIAL IVP PRN ×2 (16:03→21:36)
[2018-03-08] MEDS: ACETAMINOPHEN 325 MG TAB PO PRN (16:04)
--- NOTE | 2018-03-08 16:05 | PDGENHP ---
History and Physical - Chief Complaint fever - History of Present Illness 52yo F with history of nephrolithiasis who presents with mild dysuria, urinary frequency associated with fever and right flank pain. No hematuria or incontinence. Symptoms started yesterday morning. Went to urgent care who prescribed macrobid. She had chills/sweats last night and woke up this morning with temperature of 102F so came to ED. Mild nausea but no other symptoms. Doesn 't have frequent UTIs but has had symptomatic kidney stones several times; this episode feels differently than that. She did have a laser ablation of kidney stone 2-3 years ago but has not seen a urologist. In the ED, found to have infected-appearing urine sample. Given that she has worsened with outpatient antibiotics, she was given 1g CTX and admitted for further management. History Information - Allergies/Home Medication List Allergies/Adverse Reactions: adhesive Allergy (Mild, Verified 03/08/18 12:26) blistering at site mushroom Allergy (Mild, Verified 03/08/18 12:26) GI upset Sulfa (Sulfonamide Antibiotics) Allergy (Mild, Verified 03/08/18 12:26) Rash Home Medications: Albuterol [Proventil Inhaler HFA (*)] 1 - 2 puffs IH DAILY PRN 03/08/18 [Last Taken 03/06/18] Ibuprofen [Motrin (*)] 200 mg PO DAILY PRN 03/08/18 [Last Taken Unknown] Naproxen Sodium [Aleve 220 MG (*)] 220 mg PO BID PRN 03/08/18 [Last Taken Unknown] Nitrofurantoin Monohyd/M-Cryst [Macrobid 100 mg Capsule] 100 mg PO BID 03/08/18 [Last Taken 03/07/18 21:00] I have personally reviewed and updated: family history, medical history, social history, surgical history - Past Medical History Additional medical history: nephrolithiasis - Surgical History Additional surgical history: laser ablation of kidney stone, cholecystectomy - Family History Additional family history: no family history of renal stones; numerous family members with various malignancies - Social History Smoking Status: Never smoked Alcohol Use: Rarely Drug Use: None Additional social history: 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 Denies: chest pain, edema, palpitations Respiratory: Reports: cough. Denies: shortness of breath Gastrointestinal: Reports: nausea. Denies: vomitting, abdominal pain, diarrhea Genitourinary: Reports: burning, dysuria, flank pain, frequency. Denies: hematuria Muscolosketal: Reports: back pain Skin: Reports: no symptoms. Denies: rash Neurological: Reports: no symptoms Hematologic/Lymphatic: Reports: no symptoms Physical Exam Physical Exam: Temp Pulse Resp BP Pulse Ox 37.0 C 91 16 122/73 H 95 03/08/18 14:51 03/08/18 14:51 03/08/18 14:51 03/08/18 14:51 03/08/18 14:51 Constitutional: no apparent distress, appears nourished, not in pain, obese Eyes: PERRL, anicteric sclera, EOMI Ears, Nose, Mouth, Throat: moist mucous membranes, hearing normal, ears appear normal, no oral mucosal ulcers Cardiovascular: regular rate and rhythym, no murmur, rub, or gallop, No edema Respiratory: no respiratory distress, no rales or rhonchi, clear to auscultation Gastrointestinal: normoactive bowel sounds, soft, non-tender abdomen, no palpable masses Genitourinary: no bladder fullness, no bladder tenderness Skin: warm, normal color, no rashes or abrasions, no fluctuance, no induration, No mottled Musculoskeletal: other (R flank pain) Neurologic: AAOx3, CN II-XII Intact, No weakness Psychiatric: interacting appropriately, not anxious, not encephalopathic, thought process linear Lab Data & Imaging Review 03/08/18 13:00 03/08/18 13:00 WBC 5.89 10^3/uL (3.80-9.50) 03/08/18 13:00 RBC 5.39 10^6/uL (4.18-5.33) H 03/08/18 13:00 Hgb 14.9 g/dL (12.6-16.3) 03/08/18 13:00 Hct 44.9 % (38.0-47.0) 03/08/18 13:00 MCV 83.3 fL (81.5-99.8) 03/08/18 13:00 MCH 27.6 pg (27.9-34.1) L 03/08/18 13:00 MCHC 33.2 g/dL (32.4-36.7) 03/08/18 13:00 RDW 12.9 % (11.5-15.2) 03/08/18 13:00 Plt Count 333 10^3/uL (150-400) 03/08/18 13:00 MPV 9.1 fL (8.7-11.7) 03/08/18 13:00 Neut % (Auto) 80.2 % (39.3-74.2) H 03/08/18 13:00 Lymph % (Auto) 10.9 % (15.0-45.0) L 03/08/18 13:00 [place] % (Auto) 6.6 % (4.5-13.0) 03/08/18 13:00 Eos % (Auto) 1.0 % (0.6-7.6) 03/08/18 13:00 Baso % (Auto) 0.8 % (0.3-1.7) 03/08/18 13:00 Nucleat RBC Rel Count 0.0 % (0.0-0.2) 03/08/18 13:00 Absolute Neuts (auto) 4.72 10^3/uL (1.70-6.50) 03/08/18 13:00 Absolute Lymphs (auto) 0.64 10^3/uL (1.00-3.00) L 03/08/18 13:00 Absolute Monos (auto) 0.39 10^3/uL (0.30-0.80) 03/08/18 13:00 Absolute Eos (auto) 0.06 10^3/uL (0.03-0.40) 03/08/18 13:00 Absolute Basos (auto) 0.05 10^3/uL (0.02-0.10) 03/08/18 13:00 Absolute Nucleated RBC 0.00 10^3/uL (0-0.01) 03/08/18 13:00 Immature Gran % 0.5 % (0.0-1.1) 03/08/18 13:00 Immature Gran # 0.03 10^3/uL (0.00-0.10) 03/08/18 13:00 VBG Lactic Acid 0.9 mmol/L (0.7-2.1) 03/08/18 13:00 Sodium 135 mEq/L (135-145) 03/08/18 13:00 Potassium 4.1 mEq/L (3.3-5.0) 03/08/18 13:00 Chloride 104 mEq/L (97-110) 03/08/18 13:00 Carbon Dioxide 25 mEq/l (22-31) 03/08/18 13:00 Anion Gap 6 mEq/L (8-16) L 03/08/18 13:00 BUN 8 mg/dL (7-23) 03/08/18 13:00 Creatinine 0.7 mg/dL (0.6-1.0) 03/08/18 13:00 Estimated GFR > 60 03/08/18 13:00 Glucose 96 mg/dL (70-100) 03/08/18 13:00 Calcium 9.1 mg/dL (8.5-10.4) 03/08/18 13:00 Total Bilirubin 0.8 mg/dL (0.1-1.4) 03/08/18 13:00 Conjugated Bilirubin 0.2 mg/dL (0.0-0.5) 03/08/18 13:00 Unconjugated Bilirubin 0.6 mg/dL (0.0-1.1) 03/08/18 13:00 AST 32 IU/L (14-46) 03/08/18 13:00 ALT 33 IU/L (9-52) 03/08/18 13:00 Alkaline Phosphatase 113 IU/L (38-126) 03/08/18 13:00 Total Protein 6.9 g/dL (6.3-8.2) 03/08/18 13:00 Albumin 3.7 g/dL (3.5-5.0) 03/08/18 13:00 Lipase 64 IU/L (23-300) 03/08/18 13:00 Urine Color YELLOW 03/08/18 12:37 Urine Appearance HAZY 03/08/18 12:37 Urine pH 7.0 (5.0-7.5) 03/08/18 12:37 Ur Specific [place] 1.009 (1.002-1.030) 03/08/18 12:37 Urine Protein NEGATIVE (NEGATIVE) 03/08/18 12:37 Urine Ketones NEGATIVE (NEGATIVE) 03/08/18 12:37 Urine Blood 2+ (NEGATIVE) H 03/08/18 12:37 Urine Nitrate NEGATIVE (NEGATIVE) 03/08/18 12:37 Urine Bilirubin NEGATIVE (NEGATIVE) 03/08/18 12:37 Urine Urobilinogen NEGATIVE EU (0.2-1.0) 03/08/18 12:37 Ur Leukocyte Esterase TRACE (NEGATIVE) H 03/08/18 12:37 Urine RBC 50-182 /hpf (0-3) H 03/08/18 12:37 Urine WBC 3-5 /hpf (0-3) H 03/08/18 12:37 Ur Epithelial Cells 1+ /lpf (NONE-1+) 03/08/18 12:37 Urine Bacteria 3+ /hpf (NONE SEEN) H 03/08/18 12:37 Urine Mucus TRACE /lpf (NONE-1+) 03/08/18 12:37 Urine Glucose NEGATIVE (NEGATIVE) 03/08/18 12:37 Assessment & Plan Assessment: 52yo F with history of nephrolithiasis who presents with urinary symptoms, flank pain and fever found to have infected appearing urine sample consistent with pyelonephritis. Plan: #Pyelonephritis: Clinical diagnosis based on flank pain, fever, urinary symptoms although no overt fat stranding on ultrasound. Not septic. Suspect she is at risk for infections with known kidney stones although they are small (<5mm ) in size. Continue CTX 1g IV q24h and follow urine/blood cultures to narrow abx. #Nephrolithiasis: Right side. No hydronephrosis and not obstructing. Will discuss with urology as this patient should have follow up. Start flomax. APAP prn for pain control. #Sinus tachycardia: On admission. No other SIRS criteria. Resolved with IVF. VTE ppx: low risk, SCDs Diet: regular Code: FCFT Disposition: admit under observation for management of pyelonephritis with IV antibiotics
[2018-03-08] MEDS: oxyCODONE IR 5 MG TAB PO PRN ×2 (17:35→21:38)
[2018-03-09] MEDS: oxyCODONE IR 5 MG TAB PO PRN ×3 (04:17→13:48)
--- NOTE | 2018-03-09 09:48 | ASMTCMCOM ---
CM Note CM Note Notes: CM reviewed Pt's chart for D/C planning. Pt is a 52 y/o female with hx of nephrolithiasis who presented to the ED with mild dysuria, urinary frequency associated with fever and right flank pain. Symptoms started in the morning 03/07. 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 Prior to hospitalization she lived independently with her BF. It is anticipated that she will have no CM needs. CM will follow. D/C Plan: Anticipate Independent Date Signed: 03/09/2018 09:47 AM Electronically Signed By:Lenore Hsieh
[2018-03-09] MEDS: ONDANSETRON 4 MG/2 ML VIAL IVP PRN (10:17)
[2018-03-09] MEDS: ACETAMINOPHEN 325 MG TAB PO PRN (10:17)
[2018-03-09] MEDS ORDERED: PROMETHAZINE HCL 25 MG/ML INJ IVP ONE (13:07)
--- NOTE | 2018-03-09 16:10 | PDDCSUM ---
Discharge Summary Discharge Summary: Date of Admission: 03/08/2018 Date of Discharge: 03/09/2018 Consultants: none Procedures: none Brief Hospital Course by Diagnosis: 52yo F with history of nephrolithiasis who presents with urinary symptoms, flank pain and fever found to have infected appearing urine sample consistent with pyelonephritis. #Pyelonephritis: Clinical diagnosis based on flank pain, fever, urinary symptoms although no perinephric stranding on ultrasound. Urine culture with multiple organisms. Received CTX while inpatient and discharged with cefdinir to complete 7 day course. She was given short course of opioids on discharge for pain. #Nephrolithiasis: Right side. No hydronephrosis and not obstructing. Noted on ultrasound this admission and CT from last month. Small (<5mm) and thus no urologic intervention necessary. Encouraged to get outpatient referral to urology. #Nausea: Controlled with PO phenergan and was given a prescription for this. Items for Follow Up: 1. Recommend referral to urology for additional management of nephrolithiasis Tests Pending at Discharge: finalized blood cultures (currently NGTD) Medications at Discharge: Please refer to EMR for complete medication list. We added cefdinir 300mg BID x5 days, and prescribed oxycodone IR 5mg #8 and phenergan 12.5mg PRN #12. Physical Exam: Vitals reviewed and patient examined on day of discharge. She is alert with improved R flank pain.
--- NOTE | 2018-03-09 16:27 | ASMTLACE ---
CAROLYNN Length of stay for Answers: 1 day current admission Acuity / Level of Answers: No Care: Did the patient have an inpatient admission? Comorbidities - select Answers: Other Notes: Nephrolithiasis all that apply # of Emergency department Answers: 1-2 visits in the last 6 months Social determinants Answers: Mental health diagnosis (anxiety, depression, pers onality disorders, etc.) Score: 6 Date Signed: 03/09/2018 04:26 PM Electronically Signed By:Lenore Hsieh
--- NOTE | 2018-03-09 16:28 | ASMTDCNOTE ---
Case Management Discharge Discharge Order Complete? Answers: Yes Patient to Obtain Answers: Independently Medications Transportation Arranged Answers: Family/Friends Family Notified Answers: Yes Discharge Comments Notes: There have been no CM needs identified. Pt D/C ing home independently. Date Signed: 03/09/2018 04:27 PM Electronically Signed By:Lenore Hsieh
[2018-03-09 16:37] VITALS: BP 113/73
== END 2018-03-09 17:32 | disposition home or self-care (01) ==
LOC: F1N 14:48
PROVIDERS: ADMIT Internal Medicine; ATTEND Internal Medicine
DX: N12 Tubulo-interstitial nephritis, not specified as acute or chronic (principal); N20.0 Calculus of kidney; E86.9 Volume depletion, unspecified
CPT/HCPCS: 76770; 96361; 96365; 96375; 99285; G0378; J0696; J1885; J2405; J2550

== ENCOUNTER 2018-05-08 05:10 | Observation (INO) | payer OTHER ==
[2018-05-08] MEDS ORDERED: ONDANSETRON 4 MG/2 ML VIAL IVP ONE (05:19)
[2018-05-08] MEDS ORDERED: NS 1,000 ML IV ONE (05:19)
[2018-05-08] MEDS ORDERED: HYDROmorphONE/DILAUDID 2 MG/ML INJ IVP ONE (05:19)
--- NOTE | 2018-05-08 05:25 | EDPHY ---
H & P Stated Complaint: vomiting and right flank pain Time Seen by Provider: 05/08/18 05:23 HPI/ROS: HPI CHIEF COMPLAINT: Right flank pain, nausea, vomiting HISTORY OF PRESENT ILLNESS: 52-year-old female, presents emergency room with right flank pain. She describes as sharp stabbing radiating to her right lower abdomen. Patient denies any chest pain shortness of breath this woke her from sleep an hour ago. She has associated nausea vomiting with it. She has had a history of kidney stones and this feels similar. Past Medical History: Previous kidney stone Past Surgical History: Tubal ligation Social History: Denies drugs alcohol tobacco Family History: Noncontributory ROS REVIEW OF SYSTEMS: 10 Systems were reviewed and negative with the exception of the elements mentioned in the history of present illness. Exam Constitutional triage nursing summary reviewed, vital signs reviewed, awake/ alert. Eyes normal conjunctivae and sclera, EOMI, PERRLA. HENT normal inspection, atraumatic, moist mucus membranes, no epistaxis, neck supple/ no meningismus, no raccoon eyes. Respiratory clear to auscultation bilaterally, normal breath sounds, no respiratory distress, no wheezing. Cardiovascular rate normal, regular rhythm, no murmur, no edema, distal pulses normal. Gastrointestinal soft, non-tender, no rebound, no guarding, normal bowel sounds, no distension, no pulsatile mass. Genitourinary mild tender palpation right CVA. Musculoskeletal no midline vertebral tenderness, full range of motion, no calf swelling, no tenderness of extremities, no meningismus, good pulses, neurovascularly intact. Skin pink, warm, & dry, no rash, skin atraumatic. Neurologic awake, alert and oriented x 3, AAOx3, moves all 4 extremities equally, motor intact, sensory intact, CN II-XII intact, normal cerebellar, normal vision, normal speech. Psychiatric normal mood/affect. Heme/Lymph/Immune no lymphadenopathy. Differential Diagnosis: Differential diagnosis includes but is not limited to and in no particular order: Bowel obstruction, appendicitis, gallbladder disease, diverticulitis, colitis, enteritis, perforated viscus, gastritis, GERD , esophagitis, urinary tract infection, pyelonephritis, kidney stones Medical Decision Making: Plan for this patient IV establishment IV fluid bolus 1 L normal saline, IV Zofran for nausea, IV Dilaudid for pain control. CT scan abdomen pelvis without contrast for kidney stone. Re-evaluation: CT scan abdomen pelvis without contrast: 7 mm obstructing right-sided stone. Patient's urinalysis reviewed. Plan will be for obstructive uropathy and ongoing pain to be admitted. CT scan shows 7 mm obstructing right-sided stone. Urinalysis reviewed concerning for possibly early infection. Urine cultures been sent. Rocephin has been ordered. Due to the ongoing pain and obstructive uropathy the patient be admitted to the hospital. Urology will be consult. I consult to Dr. Regalado who agrees to admit. Spoke with Urology Dr. Vasquez, agrees to consult and see Source: Patient - Personal History LMP (Females 10-55): Post Menopausal Current Tetanus/Diphtheria Vaccine: Yes Current Tetanus Diphtheria and Acellular Pertussis (TDAP): Yes Tetanus Vaccine Date: 10/13/16 - Medical/Surgical History Hx Asthma: No Hx Chronic Respiratory Disease: No Hx Diabetes: No Hx Cardiac Disease: No Hx Renal Disease: No Hx Cirrhosis: No Hx Alcoholism: No Hx HIV/AIDS: No Hx Splenectomy or Spleen Trauma: No Other PMH: PMH: kidney stones, bronchitis, ptsd, anxiety,bone spurs R heel. PSH : stephen, tubal ligation - Social History Smoking Status: Never smoked Constitutional: Initial Vital Signs Temperature (C) 36.9 C 05/08/18 05:12 Heart Rate 100 05/08/18 05:12 Respiratory Rate 18 05/08/18 05:12 Blood Pressure 170/105 H 05/08/18 05:12 O2 Sat (%) 97 05/08/18 05:12 O2 Delivery Mode Nasal Cannula Allergies/Adverse Reactions: adhesive Allergy (Mild, Verified 03/08/18 12:26) blistering at site mushroom Allergy (Mild, Verified 03/08/18 12:26) GI upset Sulfa (Sulfonamide Antibiotics) Allergy (Mild, Verified 03/08/18 12:26) Rash Penicillins Allergy (Verified 05/08/18 08:01) Hives Home Medications: Medication Instructions Recorded Cyclobenzaprine [Flexeril 10 MG 5 - 10 mg PO TID PRN 05/08/18 (*)] traMADol [Ultram 50 mg (*)] 100 mg PO QID PRN 05/08/18 Medical Decision Making - Diagnostics Imaging Results: Imaging Impressions Fluoroscopy 05/08/18 00:00 Impression: Right double pigtail ureteral stent placement. Abdomen/Pelvis CT 05/08/18 05:23 Impression: 1. 7 mm calculus distal right ureter with associated high-grade hydronephrosis. Right nephrolithiasis. The study was performed as an emergency on-call case and discussed by telephone with Dr. Spike Montes at 5:50 AM hrs. The final interpretation is concordant with the original communication. Attention: This CT examination is specifically designed to evaluate patients who are clinically suspected of having acute obstructive uropathy. This examination does not use radiographic contrast, and as such, provides only a limited evaluation of the abdomen, pelvis and retroperitoneum. If there is further clinical suspicion for pathological conditions other than obstructive uropathy, a complete CT evaluation of the abdomen and pelvis utilizing intravenous, oral, and rectal contrast should be considered. - Data Points Laboratory Results: Laboratory Results 05/08/18 05:25 05/08/18 05:25 Medications Given: Discontinued Medications Cefazolin Sodium (Ancef) Confirm Administered Dose 1 gm .ROUTE .STK-MED ONE Stop: 05/08/18 10:35 Last Admin: 05/08/18 10:34 Dose: 1 gm Hydromorphone HCl (Dilaudid) 0.5 mg IVP EDNOW ONE Stop: 05/08/18 05:20 Last Admin: 05/08/18 05:46 Dose: 0.5 mg Sodium Chloride (Ns) 1,000 mls @ 0 mls/hr IV EDNOW ONE; Wide Open PRN Reason: Protocol Stop: 05/08/18 05:20 Last Admin: 05/08/18 05:29 Dose: 1,000 mls Ceftriaxone Sodium/Dextrose (Rocephin 1 Gm (Premix)) 50 mls @ 100 mls/hr IV EDNOW ONE PRN Reason: Protocol Stop: 05/08/18 06:51 Last Admin: 05/08/18 07:18 Dose: 50 mls Iopamidol (Isovue-M 300) Confirm Administered Dose 30 ml .ROUTE .STK-MED ONE Stop: 05/08/18 09:51 Last Admin: 05/08/18 10:51 Dose: Not Given Lidocaine (Uroject Lidocaine 2% Jelly) Confirm Administered Dose 20 ml .ROUTE .STK-MED ONE Stop: 05/08/18 09:51 Last Admin: 09/29/18 10:52 Dose: Not Given Midazolam HCl (Versed) 1 - 2 mg IVP ONCALL ONE Stop: 05/08/18 09:48 Last Admin: 05/08/18 10:12 Dose: 2 mg Morphine Sulfate (Morphine) 1 - 2 mg IVP Q1HR PRN PRN Reason: Pain, Severe Unable to Take PO Stop: 05/18/18 06:28 Last Admin: 05/08/18 08:43 Dose: 1 mg Ondansetron HCl (Zofran) 4 mg IVP EDNOW ONE Stop: 05/08/18 05:20 Last Admin: 05/08/18 05:44 Dose: 4 mg Departure - Departure Disposition: [facility] Acute Clinical Impression: Kidney stone Condition: Good
[2018-05-08 05:40] LABS: PLATELET COUNT 388 10^3/uL (150-400)
[2018-05-08] MEDS ORDERED: OXYCODONE/APAP 5/325 TAB PO PRN (06:29)
[2018-05-08] MEDS ORDERED: ONDANSETRON 4 MG/2 ML VIAL IVP PRN ×2 (06:29→10:54)
[2018-05-08] MEDS ORDERED: ONDANSETRON DISINTEGRATING 4 MG TAB PO PRN (06:29)
[2018-05-08] MEDS ORDERED: ACETAMINOPHEN 325 MG TAB PO PRN (06:29)
[2018-05-08] MEDS ORDERED: NS 1,000 ML IV SCH (06:30)
--- NOTE | 2018-05-08 06:58 | PDGENHP ---
History and Physical - Chief Complaint R flank pain - History of Present Illness 52 yo F w/ hx of nephrolithiasis presents with R flank pain. She describes acute onset of R flank pain around 4 AM. She states this reminded her very much of her previous bouts of nephrolithiasis. CT in the ED confirmed her suspicion and revealed 7 mm stone with obstruction and hydronephrosis. Her pain is currently improved after pain medication. She denies fevers/chills. She did have mild dysuria but only this morning after the onset of the pain. Of note, she had a 6 mm stone surgically removed in the past. She is currently undergoing work-up to figure out why she has recurrent stones. Case discussed with ED physician Dr. Montes; records reviewed in EMR. History Information - Allergies/Home Medication List Allergies/Adverse Reactions: adhesive Allergy (Mild, Verified 03/08/18 12:26) blistering at site mushroom Allergy (Mild, Verified 03/08/18 12:26) GI upset Sulfa (Sulfonamide Antibiotics) Allergy (Mild, Verified 03/08/18 12:26) Rash Penicillins Allergy (Verified 05/08/18 05:16) Home Medications: Flexeril 10 MG (*) 05/08/18 [Last Taken Unknown] traMADol 05/08/18 [Last Taken Unknown] I have personally reviewed and updated: family history, medical history - Past Medical History Additional medical history: nephrolithiasis - Surgical History Additional surgical history: laser ablation of kidney stone, cholecystectomy - Family History Additional family history: no family history of renal stones; numerous family members with various malignancies - Social History Smoking Status: Never smoked Additional social history: 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 [employer], lives wiht boyfriend Review of Systems Review of Systems: ROS: 10pt was reviewed & negative except for what was stated in HPI & below Physical Exam Physical Exam: Temp Pulse Resp BP Pulse Ox 36.9 C 100 18 170/105 H 97 05/08/18 05:12 05/08/18 05:12 05/08/18 05:12 05/08/18 05:12 05/08/18 05:12 Constitutional: obese, uncomfortable Eyes: PERRL, EOMI Ears, Nose, Mouth, Throat: moist mucous membranes, no oral mucosal ulcers Cardiovascular: regular rate and rhythym, no murmur, rub, or gallop Respiratory: no respiratory distress, clear to auscultation Gastrointestinal: normoactive bowel sounds, tenderness (R flank) Skin: warm, normal color Musculoskeletal: full muscle strength, no muscle tenderness Neurologic: AAOx3, CN II-XII Intact Psychiatric: interacting appropriately, not anxious Lab Data & Imaging Review 05/08/18 05:25 05/08/18 05:25 WBC 9.97 10^3/uL (3.80-9.50) H 05/08/18 05:25 RBC 5.34 10^6/uL (4.18-5.33) H 05/08/18 05:25 Hgb 14.8 g/dL (12.6-16.3) 05/08/18 05:25 Hct 44.8 % (38.0-47.0) 05/08/18 05:25 MCV 83.9 fL (81.5-99.8) 05/08/18 05:25 MCH 27.7 pg (27.9-34.1) L 05/08/18 05:25 MCHC 33.0 g/dL (32.4-36.7) 05/08/18 05:25 RDW 13.2 % (11.5-15.2) 05/08/18 05:25 Plt Count 388 10^3/uL (150-400) 05/08/18 05:25 MPV 9.6 fL (8.7-11.7) 05/08/18 05:25 Neut % (Auto) 49.0 % (39.3-74.2) 05/08/18 05:25 Lymph % (Auto) 36.7 % (15.0-45.0) 05/08/18 05:25 [place] % (Auto) 6.2 % (4.5-13.0) 05/08/18 05:25 Eos % (Auto) 6.8 % (0.6-7.6) 05/08/18 05:25 Baso % (Auto) 1.1 % (0.3-1.7) 05/08/18 05:25 Nucleat RBC Rel Count 0.0 % (0.0-0.2) 05/08/18 05:25 Absolute Neuts (auto) 4.88 10^3/uL (1.70-6.50) 05/08/18 05:25 Absolute Lymphs (auto) 3.66 10^3/uL (1.00-3.00) H 05/08/18 05:25 Absolute Monos (auto) 0.62 10^3/uL (0.30-0.80) 05/08/18 05:25 Absolute Eos (auto) 0.68 10^3/uL (0.03-0.40) H 05/08/18 05:25 Absolute Basos (auto) 0.11 10^3/uL (0.02-0.10) H 05/08/18 05:25 Absolute Nucleated RBC 0.00 10^3/uL (0-0.01) 05/08/18 05:25 Immature Gran % 0.2 % (0.0-1.1) 05/08/18 05:25 Immature Gran # 0.02 10^3/uL (0.00-0.10) 05/08/18 05:25 Sodium 140 mEq/L (135-145) 05/08/18 05:25 Potassium 4.1 mEq/L (3.3-5.0) 05/08/18 05:25 Chloride 105 mEq/L (97-110) 05/08/18 05:25 Carbon Dioxide 24 mEq/l (22-31) 05/08/18 05:25 Anion Gap 11 mEq/L (8-16) 05/08/18 05:25 BUN 14 mg/dL (7-23) 05/08/18 05:25 Creatinine 0.7 mg/dL (0.6-1.0) 05/08/18 05:25 Estimated GFR > 60 05/08/18 05:25 Glucose 105 mg/dL (70-100) H 05/08/18 05:25 Calcium 9.9 mg/dL (8.5-10.4) 05/08/18 05:25 Total Bilirubin 0.4 mg/dL (0.1-1.4) 05/08/18 05:25 Conjugated Bilirubin 0.2 mg/dL (0.0-0.5) 05/08/18 05:25 Unconjugated Bilirubin 0.2 mg/dL (0.0-1.1) 05/08/18 05:25 AST 25 IU/L (14-46) 05/08/18 05:25 ALT 27 IU/L (9-52) 05/08/18 05:25 Alkaline Phosphatase 104 IU/L (38-126) 05/08/18 05:25 Total Protein 7.3 g/dL (6.3-8.2) 05/08/18 05:25 Albumin 4.1 g/dL (3.5-5.0) 05/08/18 05:25 Lipase 179 IU/L (23-300) 05/08/18 05:25 Beta HCG, Qual NEGATIVE 05/08/18 05:25 Urine Color YELLOW 05/08/18 05:25 Urine Appearance MODERATELY TURBID 05/08/18 05:25 Urine pH 5.0 (5.0-7.5) 05/08/18 05:25 Ur Specific [place] 1.015 (1.002-1.030) 05/08/18 05:25 Urine Protein 1+ (NEGATIVE) H 05/08/18 05:25 Urine Ketones NEGATIVE (NEGATIVE) 05/08/18 05:25 Urine Blood 3+ (NEGATIVE) H 05/08/18 05:25 Urine Nitrate NEGATIVE (NEGATIVE) 05/08/18 05:25 Urine Bilirubin NEGATIVE (NEGATIVE) 05/08/18 05:25 Urine Urobilinogen NEGATIVE EU (0.2-1.0) 05/08/18 05:25 Ur Leukocyte Esterase NEGATIVE (NEGATIVE) 05/08/18 05:25 Urine RBC 50-182 /hpf (0-3) H 05/08/18 05:25 Urine WBC 5-10 /hpf (0-3) H 05/08/18 05:25 Ur Epithelial Cells 1+ /lpf (NONE-1+) 05/08/18 05:25 Urine Bacteria 1+ /hpf (NONE SEEN) H 05/08/18 05:25 Urine Glucose NEGATIVE (NEGATIVE) 05/08/18 05:25 Imaging Review: CT A/P Prelim: 7 mm stone distal right ureter with marked hydro Assessment & Plan Assessment: 52 yo F w/ hx of nephrolithiasis presents with distal R ureter stone with obstruction and hydronephrosis. Plan: 1. Recurrent nephrolithiasis - 7 mm distal R ureter stone with obstruction and marked hydronephrosis. Pain now well controlled after pain medication in the ED. She is currently undergoing outpatient investigation as to why stones are recurrent. - Admit for observation - Monitor for infectious symptoms; s/p CTX x1 in ED, will monitor off of further antibiotics - Continue IVF - Oxycodone, morphine PRN - Urology consulted, appreciate assistance 2. Hydronephrosis - 2/2 #1; renal function within normal limits. - Continue IVF - Urology consulted Diet - NPO pending urology evaluation Code - Full Ppx - SCDs Dispo - Admit under observation status
--- NOTE | 2018-05-08 09:15 | ASMTCMCOM ---
CM Note CM Note Notes: Chart reviewed. 52 year old female admitted via ED with c/o right flank pain. History significant for previous stone that required surgical intervention. Per CT she has recurrent stone. Lives independently. No current needs identifed. CM available should needs arise. Plan: Likely home no needs when medically cleared for discharge. Date Signed: 05/08/2018 09:14 AM Electronically Signed By:Mai Cisse RN
[2018-05-08] MEDS ORDERED: MIDAZOLAM 2 MG/2 ML VIAL IVP ONE (09:47)
--- NOTE | 2018-05-08 09:47 | PDANEPAE ---
ANE History of Present Illness cysto for stones ANE Past Medical History - Pulmonary History Hx Oxygen in Use at Home: No Hx Sleep Apnea: No Sleep Apnea Screening Result - Last Documented: Positive - Endocrine History Hx Diabetes: No - Chronic Pain History Chronic Pain: No ANE Review of Systems Review of Systems: - Exercise capacity Exercise capacity: >=4 METS ANE Patient History - Allergies Allergies/Adverse Reactions: adhesive Allergy (Mild, Verified 03/08/18 12:26) blistering at site mushroom Allergy (Mild, Verified 03/08/18 12:26) GI upset Sulfa (Sulfonamide Antibiotics) Allergy (Mild, Verified 03/08/18 12:26) Rash Penicillins Allergy (Verified 05/08/18 08:01) Hives - Home Medications Home medications: home medication list seen and reviewed Home Medications: Cyclobenzaprine [Flexeril 10 MG (*)] 5 - 10 mg PO TID PRN 05/08/18 [Last Taken 05/06/18] traMADol [Ultram 50 mg (*)] 100 mg PO QID PRN 05/08/18 [Last Taken 05/07/18] - NPO status NPO Status: no food or drink >8 hours NPO Since - Liquids (Date): 05/07/18 NPO Since - Liquids (Time): 22:00 NPO Since - Solids (Date): 05/07/18 NPO Since - Solids (Time): 22:00 - Anes Hx Anes Hx: no prior problems - Smoking Hx Smoking Status: Never smoked - Alcohol Use Alcohol Use: Rarely - Family Anes Hx Family Anes Hx: none ANE Labs/Vital Signs - Labs Result Diagrams: 05/08/18 05:25 05/08/18 05:25 - Vital Signs Blood Pressure: 131/80 Heart Rate: 82 Respiratory Rate: 14 O2 Sat (%): 92 Height: 165.1 cm Weight: 120.202 kg ANE Physical Exam - Airway Neck exam: FROM Mallampati Score: Class 2 Mouth exam: normal dental/mouth exam - Pulmonary Pulmonary: no respiratory distress - Cardiovascular Cardiovascular: regular rate and rhythym - ASA Status ASA Status: II ANE Anesthesia Plan Anesthesia Plan: general endotracheal anesthesia
[2018-05-08] MEDS ORDERED: LIDOCAINE 2% JELLY 20 ML (UROJECT) ONE (09:50)
[2018-05-08] MEDS ORDERED: IOPAMIDOL (ISOVUE-M 300) 15 ML VIAL ONE (09:50)
[2018-05-08] MEDS ORDERED: MIDAZOLAM 2 MG/2 ML VIAL ONE (10:02)
[2018-05-08] MEDS ORDERED: fentaNYL 100 MCG/2 ML INJ ONE (10:15)
[2018-05-08] MEDS ORDERED: PROPOFOL/EMULSION 500 MG/50 ML BOTTLE IV ONE (10:16)
[2018-05-08] MEDS ORDERED: LIDOCAINE HCL 160 MG/4 ML LTA KIT TP ONE (10:16)
[2018-05-08] MEDS ORDERED: ROCURONIUM 50 MG/5 ML VIAL ONE (10:17)
[2018-05-08] MEDS ORDERED: DEXAMETHASONE 4 MG/ML VIAL ONE ×2 (10:18)
[2018-05-08] MEDS ORDERED: ONDANSETRON 4 MG/2 ML VIAL ONE (10:19)
[2018-05-08] MEDS ORDERED: LIDOCAINE 2% 100 MG/5 ML SYR ONE (10:19)
[2018-05-08] MEDS ORDERED: ceFAZolin 1 GM VIAL ONE (10:34)
[2018-05-08] MEDS ORDERED: oxyCODONE IR 5 MG TAB PO PRN (10:54)
[2018-05-08] MEDS ORDERED: ALBUTEROL 3 ML DEYVIAL IH PRN (10:54)
[2018-05-08] MEDS ORDERED: ACETAMINOPHEN 500 MG TAB PO PRN (10:54)
[2018-05-08] MEDS ORDERED: NALOXONE HCL 0.4 MG/ML INJ IVP PRN (10:54)
[2018-05-08] MEDS ORDERED: PROMETHAZINE HCL 25 MG/ML INJ IVP PRN (10:54)
[2018-05-08] MEDS ORDERED: PHENYLEPHRINE HCL 100 MCG/ML SYR IVP PRN (10:54)
[2018-05-08] MEDS ORDERED: LABETALOL HCL 5 MG/ML 20 ML MDV IVP PRN (10:54)
[2018-05-08] MEDS ORDERED: HYDROCODONE/APAP 5/325 TAB PO PRN (10:54)
[2018-05-08] MEDS ORDERED: LR 500 ML IV PRN (10:54)
[2018-05-08] MEDS ORDERED: HYDROmorphONE/DILAUDID 2 MG/ML INJ IVP PRN (10:54)
[2018-05-08] MEDS ORDERED: MEPERIDINE 25 MG/0.5 ML AMP IVP PRN (10:54)
[2018-05-08] MEDS ORDERED: METOCLOPRAMIDE 10 MG/2 ML VIAL IVP PRN (10:54)
[2018-05-08] MEDS ORDERED: DEXAMETHASONE 4 MG/ML VIAL IVP PRN (10:54)
[2018-05-08] MEDS ORDERED: GLYCOPYRROLATE 0.2 MG/1 ML VIAL ONE ×2 (10:58)
[2018-05-08] MEDS ORDERED: NEOSTIGMINE METHYLSULFATE 5 MG/5 ML SYR ONE (10:58)
--- NOTE | 2018-05-08 11:06 | POSTOPPROG ---
Post Op Note Date of Operation: 05/08/18 Surgeon: Levon Vasquez Pre-op Diagnosis: stone Post-op Diagnosis: stone Procedure: URS Findings: [id number] Inf/Abcess present in the surg proc area at time of surgery?: No EBL: Minimal Complications: none
--- NOTE | 2018-05-08 11:23 | GCON ---
DATE OF CONSULTATION: 05/08/2018 REASON FOR CONSULTATION: Right flank pain, right hydronephrosis, right ureteral stone. HISTORY OF PRESENT ILLNESS: This is a 52-year-old female who moved to [place] 2 years ago from [facility]. She has a history of nephrolithiasis, but no spontaneous stone passage. She has been seen in o ur office previously. She had a previously known right lower pole stone, and then she developed righ t flank pain. CT scan was performed, revealed a 7 mm distal right ureteral stone with marked hydrone phrosis. The patient was admitted for pain management and stone management. The images were reviewed with the patient, and options were discussed. Ureteroscopy is recommended. She was in agreement, and informed consent was obtained. PAST MEDICAL HISTORY: Nephrolithiasis. PAST SURGICAL HISTORY: As above, and cholecystectomy. FAMILY HISTORY: Negative for stones, numerous malignancies present. SOCIAL HISTORY: As above. 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 She lives with her boyfriend. ALLERGIES: She has allergies to tape, mushrooms, sulfa, and penicillin. HOME MEDICATIONS: Include Flexeril and tramadol. REVIEW OF SYSTEMS: A 10-point system review was conducted and was noted as above, otherwise negative . PHYSICAL EXAM: VITAL SIGNS: Temperature 36.9, pulse 100, respirations 18, blood pressure 170/105. Oxygen saturation is 97%. GENERAL: Alert and oriented, obese female, pleasant, with normal mood and affect. NECK: Supple. RESPIRATORY: Effort is nonlabored. ABDOMEN: Obese, with mild right lower quadrant and right flank tenderness. : Her external genitalia appears normal. She has some uret hral hypermobility. Normal anus and perineum. EXTREMITIES: There is no extremity tenderness. LABORATORY DATA: H and H of 15 and 45, white count basically 10. BMP is normal. CT scan as above, personally reviewed. ASSESSMENT: Hydronephrosis and right distal stone. PLAN: Cystoscopy, ureteroscopy, laser fragmentation. Informed consent was obtained. The patient wa s informed of the stent pain and the need for the stent removal and was advised as to the location fo r the stent removal. /[id number]/MODL
--- NOTE | 2018-05-08 11:28 | GHP ---
DATE OF ADMISSION: 05/08/2018 PREOPERATIVE DIAGNOSIS: 7 mm distal right ureteral calculus and hydronephrosis. POSTOPERATIVE DIAGNOSIS: 7 mm distal right ureteral calculus and hydronephrosis. PROCEDURES: Cystoscopy, right ureteroscopy, laser fragmentation of stone, and stent insertion. ANESTHESIA: General. COMPLICATIONS: None. DRAINS: Right-sided 6-German stent. BLOOD LOSS: Minimal. TECHNIQUE: Patient was taken to the operating room. General anesthesia was induced. Patient was pl aced in the dorsal lithotomy position and prepped and draped in sterile fashion. The 22-German cysto scope with a 30-degree lens was inserted through the patient's urethra into the patient's bladder. N o urothelial defects, masses, or stones were noted. The right ureteral orifice was cannulated with a Sensor wire, which was guided retrograde into the pa tient's right renal pelvis with minimal difficulty. The inner trocar and access sheath were used to dilate the ureter distal to the stone. Then, after r emoving this, the semi-rigid ureteroscope was inserted alongside the wire up to the level of the ston e, which was then fragmented into multiple small pieces, which were all submillimeter. No attempt wa s made to basket these fragments. The scope was withdrawn. The wire was backloaded on the cystoscop e, and a 6-German stent was placed in the right renal pelvis with fluoroscopy and seen to curl in the bladder under direct vision. The patient's bladder was drained. At the time of this dictation, she was being returned to the supine position and prepared for extubation. /[id number]/MODL
--- NOTE | 2018-05-08 12:28 | POSTANESTH ---
Post Anesthetic Evaluation Cardiovascular Status: Normal, Stable Respiratory Status: Normal, Stable Level of Consciousness/Mental Status: Can Participate in Eval Pain Control: Adequate, Prn Tx Ordered Nausea/Vomiting Control: Adequate, Prn Tx Ordered Complications Possibly Related to Anesthesia: None Noted
[2018-05-08] MEDS ORDERED: CYCLOBENZAPRINE 10 MG TAB PO PRN (13:21)
[2018-05-08] MEDS ORDERED: traMADol 50 MG TAB PO PRN (13:21)
--- NOTE | 2018-05-08 14:15 | HOSPPROG ---
Hospitalist Progress Note Assessment/Plan: 52 yo F w recurrent nephrolithiasis, s/p cystoscopic removal home today outpt urology follow up for stent removal see dc summary Subjective: s/p stone removal. no further urinary sx Objective: Vital Signs Temp Pulse Resp BP Pulse Ox 35.6 C L 80 14 104/73 92 05/08/18 11:55 05/08/18 13:55 05/08/18 13:55 05/08/18 13:55 05/08/18 13:55 05/07/18 05/08/18 05/09/18 05:59 05:59 05:59 Intake Total 1100 Output Total 1600 Balance -500 - Physical Exam Constitutional: no apparent distress, appears nourished Eyes: PERRL, anicteric sclera Ears, Nose, Mouth, Throat: moist mucous membranes, hearing normal Cardiovascular: regular rate and rhythym, no murmur, rub, or gallop Respiratory: no respiratory distress, no rales or rhonchi Gastrointestinal: normoactive bowel sounds, soft, non-tender abdomen Genitourinary: no bladder fullness, No lowe in urethra Skin: warm ICD10 Worksheet Patient Problems: Problems Problem Status Onset Kidney stone Acute Acute pyelonephritis Acute Bronchitis Acute Flank pain Acute Right ankle sprain Acute
[2018-05-08 15:02] VITALS: BP 120/80
--- NOTE | 2018-05-08 15:42 | ASMTLACE ---
LACE Length of stay for Answers: Less than 1 day current admission Comorbidities - select Answers: Other Notes: kidney stones all that apply # of Emergency department Answers: 1-2 visits in the last 6 months Score: 2 Date Signed: 05/08/2018 03:41 PM Electronically Signed By:Mai Cisse RN
--- NOTE | 2018-05-08 15:43 | ASMTCMCOM ---
CM Note CM Note Notes: Medically cleared for dc to home. No needs identified. CM available should needs arise. Plan: Home no needs, Date Signed: 05/08/2018 03:42 PM Electronically Signed By:Mai Cisse RN
--- NOTE | 2018-05-08 18:45 | GDS ---
DISCHARGE DIAGNOSES: 1. Nephrolithiasis. 2. Morbid obesity. Please see admission history and physical by Dr. Regalado. The patient presented with flank pain. CT scan demonstrated a 7 mm stone at the distal UVJ with obstructive hydronephrosis. The symptoms for the patient were reminiscent of her prior episodes of nephrolithiasis. Her kidney function was i ntact. She did not have fever. She did not have a significant amount of pyuria and her urinary symp toms began only after the flank pain. She went to the operating room with removal of the stone and s tent placement. The patient is discharged today provided that she tolerates oral diet. She has outp atient followup with Urology for stent removal in the office. /[id number]/MODL
== END 2018-05-08 16:05 | disposition home or self-care (01) ==
LOC: F1N 08:29
PROVIDERS: ADMIT Student in an Organized Health Care Education/Training Program; ATTEND Student in an Organized Health Care Education/Training Program
PROC: 0T738DZ Dilation of Right Kidney Pelvis with Intraluminal Device, Via Natural or Artificial Opening Endoscopic (ICD-10-PCS; principal; 2018-05-08 10:00)
PROC: 0TF68ZZ Fragmentation in Right Ureter, Via Natural or Artificial Opening Endoscopic (ICD-10-PCS; principal; 2018-05-08 10:00)
DX: N13.0 Hydronephrosis with ureteropelvic junction obstruction (principal); N20.1 Calculus of ureter; E86.9 Volume depletion, unspecified; E66.01 Morbid (severe) obesity due to excess calories
CPT/HCPCS: 52356; 74176; 76001; 96361; 96374; 96375; 99285; C1758; C1769; C1894; G0378; C2625; J0690; J0696; J1100; J1170; J2001; J2250; J2270; J2405; J2704; J2710; J3010; Q9967

== ENCOUNTER 2018-05-10 08:42 | Emergency (ER) | payer OTHER ==
[2018-05-10 08:47] VITALS: BP 123/86
--- NOTE | 2018-05-10 09:27 | EDPHY ---
General Time Seen by Provider: 05/10/18 09:03 Narrative: CHIEF COMPLAINT: Blood in my urine HISTORY OF PRESENT ILLNESS: Patient presents with complaints of blood in her urine. She states that she has had some pink and red blood in her urine. She 1st noticed it this morning. She was here several days ago with flank pain and diagnosed with a ureteral stone. She was admitted to the hospital, consulted by Urology with a ureteral stent placed. She was doing well until this morning when she noticed some pink and red tinged blood. No flank pain. No fever. No difficulty voiding. No other associated complaints. She contacted her primary care physician, who recommended that she present here. She has not yet followed up with Urology. No other associated complaints or modifying factors. No use of anticoagulants. REVIEW OF SYSTEMS: 10 systems were reviewed and negative with the exception of the elements mentioned in the history of present illness. PCP: Dr. Ibrahim, [facility] SPECIALISTS: Dr. Anastasia Vasquez, urology PAST MEDICAL HISTORY: Obesity, bronchitis, nephrolithiasis, anxiety, PTSD, bone spurs PAST SURGICAL HISTORY: Cholecystectomy, tubal ligation, cystoscopy was still retrieval, right ureteral stent placement SOCIAL HISTORY: Nonsmoker. Lives independently. FAMILY HISTORY: Noncontributory EXAMINATION: General Appearance: Alert, no distress Head: normocephalic, atraumatic Eyes: Pupils equal and round, no conjunctival pallor or injection ENT, Mouth: Mucous membranes moist Neck: Normal inspection, supple, non-tender Respiratory: Lungs are clear to auscultation Cardiovascular: Regular rate and rhythm Gastrointestinal: Obese Abdomen is soft and nontender Back: non-tender, no bony abnormalities Neurological: A&O, nonfocal, normal gait Skin: Warm and dry, no rash Extremities: Nontender, no pedal edema Psychiatric: Mood and affect normal DIFFERENTIAL DIAGNOSES: Including but not limited to renal colic, ureteral colic, microscopic hematuria , gross hematuria MDM: 9:04 a.m. [place] and red tinged urine over the past 24 hr with recent right ureteral stone status post retrieval and stent placement. She has no fever. She has no significant abdominal pain. Minimal flank pain that has steadily improved since discharge. Urinalysis is currently being performed. She is awake alert. No acute distress. Vital signs stable. She is afebrile and well-appearing. 9:30 a.m. Urinalysis is expected for the patient's ureteral stents. No signs of infection. She is not on any antibiotics, thus I will order a urine culture. I discussed this with Dr. Ayala and he agrees. I discussed with the patient recommend that she contacted her urologist for definitive care. We discussed ED precautions for any return of her flank pain, bright red blood in the urine, persistent bleeding, fever. She is comfortable this plan. Discharged home stable condition. SUPERVISION: Patient was independently examined, but I discussed the case with my secondary supervising physician Dr. Ayala CONSULTATION: None - History Smoking Status: Never smoked - Objective Vital Signs: Initial Vital Signs Temperature (C) 97.9 F 05/10/18 08:44 Heart Rate 85 05/10/18 08:44 Respiratory Rate 18 05/10/18 08:44 Blood Pressure 123/86 H 05/10/18 08:44 O2 Sat (%) 95 05/10/18 08:44 Allergies/Adverse Reactions: adhesive Allergy (Mild, Verified 05/10/18 08:48) blistering at site mushroom Allergy (Mild, Verified 05/10/18 08:48) GI upset Sulfa (Sulfonamide Antibiotics) Allergy (Mild, Verified 05/10/18 08:48) Rash Penicillins Allergy (Verified 05/10/18 08:48) Hives Home Medications: Medication Instructions Recorded Cyclobenzaprine [Flexeril 10 MG 5 - 10 mg PO TID PRN 05/08/18 (*)] traMADol [Ultram 50 mg (*)] 100 mg PO QID PRN 05/08/18 Laboratory Results: 05/10/18 08:50 Urine Color RED Urine Appearance MODERATELY TURBID Urine pH 6.0 (5.0-7.5) Ur Specific [place] 1.010 (1.002-1.030) Urine Protein 2+ H (NEGATIVE) Urine Ketones NEGATIVE (NEGATIVE) Urine Blood 3+ H (NEGATIVE) Urine Nitrate NEGATIVE (NEGATIVE) Urine Bilirubin NEGATIVE (NEGATIVE) Urine Urobilinogen NEGATIVE EU EU (0.2-1.0) Ur Leukocyte Esterase 1+ H (NEGATIVE) Urine RBC 50-182 /hpf H /hpf (0-3) Urine WBC 50-182 /hpf H /hpf (0-3) Ur Epithelial Cells 1+ /lpf /lpf (NONE-1+) Urine Glucose NEGATIVE (NEGATIVE) Departure - Departure Disposition: Home, Routine, Self-Care Clinical Impression: Microscopic hematuria, S/P ureteral stent placement Condition: Good Instructions: Hematuria (ED) Additional Instructions: 1. Contact Dr. Vasquez to be seen this week for definitive care 2. Return here for any flank pain, fever, nausea, vomiting or heavy bleeding Referrals: ISAAC IBRAHIM [Primary Care Provider] - As per Instructions Levon Vasquez MD [Medical Doctor] - As per Instructions
== END 2018-05-10 09:40 | disposition home or self-care (01) ==
DX: R31.29 Other microscopic hematuria (principal); Z96.0 Presence of urogenital implants

== ENCOUNTER 2018-11-18 17:47 | Emergency (ER) | payer OTHER ==
--- NOTE | 2018-11-18 18:12 | EDPHY ---
H & P Stated Complaint: palpitations Time Seen by Provider: 11/18/18 18:06 HPI/ROS: CHIEF COMPLAINT: Buzzing in chest HISTORY OF PRESENT ILLNESS: Patient is a 53-year-old morbidly obese female who comes to the emergency department complaining of a vibrating sensation in her left chest that radiates to her left shoulder. It began at 9:00 a.m. This morning. She thought it was her phone but was not. She also states that she has been slightly short of breath for the last week in using her albuterol inhaler p.r.n.. She was given this inhaler a few years ago when she had pneumonia. She does not carry a diagnosis of asthma or COPD. 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 She had a echocardiogram 2 weeks ago that was normal. She brought the results with her. 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 She denies chest pain. She denies nausea vomiting. She denies diaphoresis. Her symptoms are not worsened by exertion. No lightheadedness. No headache. She does admit to having a sore throat 2 days ago that has since resolved. No fever. Mild occasional coughing. Severity: Moderate Modifying factors: None REVIEW OF SYSTEMS: Constitutional: denies: chills, fever, recent illness, recent injury EENTM: denies: blurred vision, double vision, nose congestion Respiratory: See HPI Cardiac: denies: chest pain, irregular heart rate, lightheadedness, palpitations Gastrointestinal/Abdominal: denies: abdominal pain, diarrhea, nausea, vomiting, blood streaked stools Genitourinary: denies: dysuria, frequency, hematuria, pain Musculoskeletal: denies: joint pain, muscle pain Skin: denies: lesions, rash, jaundice, bruising Neurological: denies: headache, numbness, paresthesia, tingling, dizziness, weakness Hematologic/Lymphatic: denies: blood clots, easy bleeding, easy bruising Immunologic/allergic: denies: HIV/AIDS, transplant 10 systems reviewed and negative except as noted EXAM: GENERAL: Well-appearing, morbidly obese and in no acute distress. HEAD: Atraumatic, normocephalic. EYES: Pupils equal round and reactive to light, extraocular movements intact, sclera anicteric, conjunctiva are normal. ENT: TMs normal, nares patent, oropharynx clear without exudates. Moist mucous membranes. NECK: Normal range of motion, supple without lymphadenopathy or JVD. LUNGS: Breath sounds clear to auscultation bilaterally and equal. No wheezes rales or rhonchi. HEART: Regular rate and rhythm without murmurs, rubs or gallops. ABDOMEN: Soft, nontender, normoactive bowel sounds. No guarding, no rebound. No masses appreciated. BACK: No CVA tenderness, no spinal tenderness, step-offs or deformities EXTREMITIES: Normal range of motion, no pitting or edema. No clubbing or cyanosis. NEUROLOGICAL: Cranial nerves II through XII grossly intact. Normal speech, normal gait. 5/5 strength, normal movement in all extremities, normal sensation , normal reflexes PSYCH: Normal mood, normal affect. SKIN: Warm, dry, normal turgor, no visible rashes or lesions. Source: Patient Exam Limitations: No limitations - Personal History Current Tetanus/Diphtheria Vaccine: Yes Current Tetanus Diphtheria and Acellular Pertussis (TDAP): Yes Tetanus Vaccine Date: 10/13/16 - Medical/Surgical History Hx Asthma: No Hx Chronic Respiratory Disease: No Hx Diabetes: No Hx Cardiac Disease: Yes Hx Renal Disease: No Hx Cirrhosis: No Hx Alcoholism: No Hx HIV/AIDS: No Hx Splenectomy or Spleen Trauma: No Other PMH: PMH: kidney stones, bronchitis, ptsd, anxiety,bone spurs R heel. PSH : stephen, tubal ligation - Family History Significant Family History: No pertinent family hx - Social History Smoking Status: Never smoked Alcohol Use: None Constitutional: Initial Vital Signs Temperature (C) 36.6 C 11/18/18 17:51 Heart Rate 98 11/18/18 17:51 Respiratory Rate 16 11/18/18 17:51 Blood Pressure 131/92 H 11/18/18 17:51 O2 Sat (%) 93 11/18/18 17:51 O2 Delivery Mode Room Air Allergies/Adverse Reactions: adhesive Allergy (Mild, Verified 05/10/18 08:48) blistering at site mushroom Allergy (Mild, Verified 05/10/18 08:48) GI upset Sulfa (Sulfonamide Antibiotics) Allergy (Mild, Verified 05/10/18 08:48) Rash hydromorphone [From Dilaudid] Allergy (Verified 11/18/18 17:51) Penicillins Allergy (Verified 05/10/18 08:48) Hives Home Medications: Medication Instructions Recorded traMADol [Ultram 50 mg (*)] 100 mg PO QID PRN 05/08/18 Albuterol 11/18/18 Lasix 11/18/18 Medical Decision Making - Diagnostics EKG Interpretation: An EKG obtained and was read and documented in trace view. Please see trace view for full reading and report. No acute ischemic changes or arrhythmia Imaging Results: Imaging Impressions Chest X-Ray 11/18/18 18:13 Impression: No acute abnormality. Imaging: Discussed imaging studies w/ heater mechanic Radiologist ED Course/Re-evaluation: 7:30 p.m. the patient is doing well. We discussed her lab results and imaging results. She is reassured. We discussed further cardiac workup and I offered to have her follow up with Cardiology Clinic for stress test. She declines states that she does not think that it is her heart she was more worried about her lungs. I agree with her history of a sore throat and now mild cough that this is likely a mild bronchitis. She has required albuterol and steroids in the past when she has had bronchitis type illnesses including an episode of pneumonia last year. I will give her dose of Decadron and a take-home albuterol. I encouraged early follow-up and discussed indications for returning here to the emergency department. Differential Diagnosis: Partial list of the Differential diagnosis considered include but were not limited to; bronchitis, pneumonia, pharyngitis, and although unlikely based on the history and physical exam, I also considered acute coronary disease, PE, dissection, pneumothorax. I discussed these differential diagnoses and the plan with the patient as well as the usual and expected course. The patient understands that the diagnosis is provisional and that in medicine we are not always correct and that further workup is often warranted. Usual and customary warnings were given. All of the patient's questions were answered. The patient was instructed to return to the emergency department should the symptoms at all worsen or return, otherwise to followup with the physician as we discussed. - Data Points Laboratory Results: Laboratory Results 11/18/18 18:24 11/18/18 18:24 11/18/18 11/18/18 11/18/18 18:25 18:24 18:24 WBC RBC Hgb Hct MCV MCH MCHC RDW Plt Count MPV Neut % (Auto) Lymph % (Auto) [place] % (Auto) Eos % (Auto) Baso % (Auto) Nucleat RBC Rel Count Absolute Neuts (auto) Absolute Lymphs (auto) Absolute Monos (auto) Absolute Eos (auto) Absolute Basos (auto) Absolute Nucleated RBC Immature Gran % Immature Gran # PT 12.5 SEC SEC (12.0-15.0) INR 0.97 (0.83-1.16) APTT 23.3 SEC SEC (23.0-38.0) D-Dimer 0.43 ug/mLFEU ug/mLFEU (0.00-0.50) Sodium 137 mEq/L mEq/L (135-145) Potassium 4.3 mEq/L mEq/L (3.5-5.2) Chloride 104 mEq/L mEq/L (97-110) Carbon Dioxide 23 mEq/l mEq/l (22-31) Anion Gap 10 mEq/L mEq/L (6-14) BUN 16 mg/dL mg/dL (7-23) Creatinine 0.7 mg/dL mg/dL (0.6-1.0) Estimated GFR > 60 Glucose 94 mg/dL mg/dL (70-100) Calcium 9.2 mg/dL mg/dL (8.5-10.4) POC Troponin I 0.00 ng/mL ng/mL (0.00-0.08) 11/18/18 18:24 WBC 7.83 10^3/uL 10^3/uL (3.80-9.50) RBC 4.88 10^6/uL 10^6/uL (4.18-5.33) Hgb 13.7 g/dL g/dL (12.6-16.3) Hct 41.3 % % (38.0-47.0) MCV 84.6 fL fL (81.5-99.8) MCH 28.1 pg pg (27.9-34.1) MCHC 33.2 g/dL g/dL (32.4-36.7) RDW 13.2 % % (11.5-15.2) Plt Count 360 10^3/uL 10^3/uL (150-400) MPV 9.7 fL fL (8.7-11.7) Neut % (Auto) 49.9 % % (39.3-74.2) Lymph % (Auto) 36.9 % % (15.0-45.0) [place] % (Auto) 6.3 % % (4.5-13.0) Eos % (Auto) 5.7 % % (0.6-7.6) Baso % (Auto) 0.9 % % (0.3-1.7) Nucleat RBC Rel Count 0.0 % % (0.0-0.2) Absolute Neuts (auto) 3.91 10^3/uL 10^3/uL (1.70-6.50) Absolute Lymphs (auto) 2.89 10^3/uL 10^3/uL (1.00-3.00) Absolute Monos (auto) 0.49 10^3/uL 10^3/uL (0.30-0.80) Absolute Eos (auto) 0.45 10^3/uL H 10^3/uL (0.03-0.40) Absolute Basos (auto) 0.07 10^3/uL 10^3/uL (0.02-0.10) Absolute Nucleated RBC 0.00 10^3/uL 10^3/uL (0-0.01) Immature Gran % 0.3 % % (0.0-1.1) Immature Gran # 0.02 10^3/uL 10^3/uL (0.00-0.10) PT INR APTT D-Dimer Sodium Potassium Chloride Carbon Dioxide Anion Gap BUN Creatinine Estimated GFR Glucose Calcium POC Troponin I Medications Given: Discontinued Medications Albuterol Sulfate (Proventil Inh Prepack) 1 mdi TAKEHOME EDNOW ONE Stop: 11/18/18 19:35 Last Admin: 11/18/18 19:53 Dose: 1 mdi Dexamethasone (Decadron) 10 mg PO EDNOW ONE Stop: 11/18/18 19:35 Last Admin: 11/18/18 19:52 Dose: 10 mg Point of Care Test Results: Chemistry 11/18/18 18:25 POC Troponin I 0.00 ng/mL ng/mL (0.00-0.08) Departure - Departure Disposition: Home, Routine, Self-Care Clinical Impression: Bronchitis Condition: Fair Instructions: Acute Bronchitis (ED) Additional Instructions: Use the albuterol inhaler as needed 2 puffs every 6 hr. You were given a single dose of steroids in the ER that should last for 2.5 days. Referrals: ISAAC COOK [Primary Care Provider] - As per Instructions
[2018-11-18 18:49] LABS: PLATELET COUNT 360 10^3/uL (150-400)
[2018-11-18 18:51] LABS: INR 0.97 (0.83-1.16); PROTIME(PATIENT) 12.5 SEC (12.0-15.0)
[2018-11-18] MEDS ORDERED: ALBUTEROL INH PREPACK MDI TAKEHOME ONE (19:34)
[2018-11-18] MEDS ORDERED: DEXAMETHASONE 4 MG TAB PO ONE (19:34)
[2018-11-18 19:59] VITALS: BP 111/82
--- NOTE | 2018-11-18 20:22 | CPEKG ---
Test Reason : OPEN Blood Pressure : / mmHG Vent. Rate : 093 BPM Atrial Rate : 094 BPM P-R Int : 165 ms QRS Dur : 118 ms QT Int : 372 ms P-R-T Axes : 026 -17 022 degrees QTc Int : 463 ms Sinus rhythm Confirmed by Tadeo Hodges ([id number] on 11/18/2018 8:21:44 PM Referred By: TADEO HODGES Confirmed By:Tadeo Hodges
== END 2018-11-18 19:59 | disposition home or self-care (01) ==
DX: J40 Bronchitis, not specified as acute or chronic (principal)
CPT/HCPCS: 84484-ER

== ENCOUNTER 2018-11-29 20:52 | Emergency (ER) | payer OTHER ==
[2018-11-29] MEDS ORDERED: IPRATROPIUM/ALBUTEROL 3 ML DEYVIAL IH ONE (22:10)
[2018-11-29] MEDS ORDERED: predniSONE 20 MG TAB PO ONE (22:10)
--- NOTE | 2018-11-29 22:17 | EDPHY ---
H & P Stated Complaint: COUGH, CHILLS XFEW WEEKS Time Seen by Provider: 11/29/18 21:58 HPI/ROS: HPI The patient presents with cough which has been present for the last 2.5 weeks which started slowly and has been persistent, not improving much despite multiple medications. The cough is dry in nature, it is worse at night when she is laying flat or when she is walking and sometimes induces shortness of breath. She denies any fever though felt cold today and did not check her temperature. Today she felt very run down which prompted her to come to the emergency department. She did not have any myalgias, rhinorrhea, sore throat. She does not have any watery eyes, itchiness, sneezing. She does not have any abdominal pain, heartburn. She does not have any chest pain, lower extremity swelling. She does take Lasix for some lower extremity edema which is thought to be related to her prolonged sitting at work. She had an echo performed a few weeks ago and per her ED visit note from about 2 weeks ago it was negative. Her dose has not changed recently. She is not a smoker. She is currently being treated with albuterol which she is using 4 times a day with some improvement in her symptoms. She is using Robitussin cough syrup at night. She also has a rash of her left chest wall and is taking Keflex for this , prescribed by her primary care doctor. REVIEW OF SYSTEMS 10 systems were reviewed and negative with the exception of the elements mentioned in the history of present illness. PMHx: History of pneumonia about 1 year ago. 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 [employer] PHYSICAL General Appearance: Alert, no distress Eyes: Pupils equal and round no pallor or injection ENT, Mouth: Mucous membranes moist Respiratory: There are no retractions, lungs are clear to auscultation Cardiovascular: Regular rate and rhythm Gastrointestinal: Abdomen is soft and non-tender, no masses, bowel sounds normal Neurological: A&O, moves all extremities Skin: Warm and dry, no rashes Musculoskeletal: No lower extremity edema Extremities: symmetrical, full range of motion Psychiatric: Patient is oriented X 3, there is no agitation Source: Patient Exam Limitations: No limitations - Personal History LMP (Females 10-55): Irregular Current Tetanus/Diphtheria Vaccine: Yes Tetanus Vaccine Date: 10/13/16 - Medical/Surgical History Hx Asthma: No Hx Chronic Respiratory Disease: No Hx Diabetes: No Hx Cardiac Disease: Yes Hx Renal Disease: No Hx Cirrhosis: No Hx Alcoholism: No Hx HIV/AIDS: No Hx Splenectomy or Spleen Trauma: No Other PMH: PMH: kidney stones, bronchitis, ptsd, anxiety,bone spurs R heel. PSH : stephen, tubal ligation - Social History Smoking Status: Never smoked Constitutional: Initial Vital Signs Temperature (C) 37.1 C 11/29/18 20:54 Heart Rate 93 11/29/18 20:54 Respiratory Rate 16 11/29/18 20:54 Blood Pressure 122/89 H 11/29/18 20:54 O2 Sat (%) 92 11/29/18 20:54 O2 Delivery Mode Room Air Allergies/Adverse Reactions: adhesive Allergy (Mild, Verified 11/29/18 20:56) blistering at site mushroom Allergy (Mild, Verified 11/29/18 20:56) GI upset Sulfa (Sulfonamide Antibiotics) Allergy (Mild, Verified 11/29/18 20:56) Rash hydromorphone [From Dilaudid] Allergy (Verified 11/29/18 20:56) Penicillins Allergy (Verified 11/29/18 20:56) Hives Home Medications: Medication Instructions Recorded traMADol [Ultram 50 mg (*)] 100 mg PO QID PRN 05/08/18 Albuterol 11/18/18 Lasix 11/18/18 CEPHALEXIN 11/29/18 Kaci-Tussin Dm Syrup 11/29/18 predniSONE [Prednisone] 40 mg PO DAILY 4 Days tablet 11/29/18 Medical Decision Making - Diagnostics EKG Interpretation: EKG: Complete interpretation has been separately recorded in the [facility] archive. Summary impression: Normal sinus rhythm Imaging Results: Imaging Impressions Chest X-Ray 11/29/18 22:11 Impression: Findings most consistent with airways disease with no superimposed pneumonia identified. Differential Diagnosis: 53-year-old female with past history of pneumonia about 1 year ago, lower extremity edema taking Lasix, obesity, presents from home with ongoing cough for the last 2.5 weeks, not improved after increasing her albuterol from 3 times a day to 4 times a day. She is taking Keflex currently for a left-sided chest wall rash. She does not have any chest pain, lower extremity edema to suggest CHF exacerbation. She does not have fever to suggest pneumonia. She does not have symptoms of postnasal drip given no rhinorrhea or other signs of allergic rhinitis. Here I will give her a DuoNeb and a dose of prednisone. I suspect she may have bronchitis. However, given her lower extremity edema I will check basic labs, chest x-ray in the case that this is cardiac cough. Patient improved with treatments here. On reassessment she was feeling a bit better. Labs were unremarkable including BNP. Chest x-ray did not demonstrate any cardiomegaly but did show signs of reactive airways disease. She feels well enough to go home. I will send her with a short course of prednisone and I have advised her to continue albuterol. She can follow up with her primary care doctor. - Data Points Laboratory Results: Laboratory Results 11/29/18 22:45 11/29/18 22:45 11/29/18 11/29/18 11/29/18 22:45 22:45 22:45 WBC 7.17 10^3/uL 10^3/uL (3.80-9.50) RBC 5.01 10^6/uL 10^6/uL (4.18-5.33) Hgb 14.1 g/dL g/dL (12.6-16.3) Hct 41.8 % % (38.0-47.0) MCV 83.4 fL fL (81.5-99.8) MCH 28.1 pg pg (27.9-34.1) MCHC 33.7 g/dL g/dL (32.4-36.7) RDW 13.2 % % (11.5-15.2) Plt Count 356 10^3/uL 10^3/uL (150-400) MPV 9.5 fL fL (8.7-11.7) Neut % (Auto) 56.0 % % (39.3-74.2) Lymph % (Auto) 31.0 % % (15.0-45.0) [place] % (Auto) 7.1 % % (4.5-13.0) Eos % (Auto) 4.6 % % (0.6-7.6) Baso % (Auto) 1.0 % % (0.3-1.7) Nucleat RBC Rel Count 0.0 % % (0.0-0.2) Absolute Neuts (auto) 4.02 10^3/uL 10^3/uL (1.70-6.50) Absolute Lymphs (auto) 2.22 10^3/uL 10^3/uL (1.00-3.00) Absolute Monos (auto) 0.51 10^3/uL 10^3/uL (0.30-0.80) Absolute Eos (auto) 0.33 10^3/uL 10^3/uL (0.03-0.40) Absolute Basos (auto) 0.07 10^3/uL 10^3/uL (0.02-0.10) Absolute Nucleated RBC 0.00 10^3/uL 10^3/uL (0-0.01) Immature Gran % 0.3 % % (0.0-1.1) Immature Gran # 0.02 10^3/uL 10^3/uL (0.00-0.10) D-Dimer 0.31 ug/mLFEU ug/mLFEU (0.00-0.50) Sodium 136 mEq/L mEq/L (135-145) Potassium 4.3 mEq/L mEq/L (3.5-5.2) Chloride 103 mEq/L mEq/L (97-110) Carbon Dioxide 26 mEq/l mEq/l (22-31) Anion Gap 7 mEq/L mEq/L (6-14) BUN 12 mg/dL mg/dL (7-23) Creatinine 1.0 mg/dL mg/dL (0.6-1.0) Estimated GFR 58 Glucose 104 mg/dL H mg/dL (70-100) Calcium 9.4 mg/dL mg/dL (8.5-10.4) NT-Pro-B Natriuret Pep 20 pg/mL pg/mL (0-125) Medications Given: Discontinued Medications Albuterol Sulfate (Proventil Inh Prepack) 1 mdi TAKEHOME EDNOW ONE Stop: 11/30/18 00:03 Last Admin: 11/30/18 00:16 Dose: 1 mdi Albuterol/Ipratropium (Duoneb) 3 ml IH EDNOW ONE Stop: 11/29/18 22:11 Last Admin: 11/29/18 22:44 Dose: 3 ml Prednisone (Prednisone) 60 mg PO EDNOW ONE Stop: 11/29/18 22:11 Last Admin: 11/29/18 22:27 Dose: 60 mg Departure - Departure Disposition: Home, Routine, Self-Care Clinical Impression: Acute bronchitis Qualifiers: Bronchitis organism: unspecified organism Qualified Code(s): J20.9 - Acute bronchitis, unspecified Condition: Good Instructions: Albuterol (By breathing), Acute Bronchitis (ED) Additional Instructions: I recommend you continue using the albuterol 4 times a day as recommended. You may want to start on a steroid and I am giving you a prescription for this. Referrals: ISAAC COOK [Primary Care Provider] - As per Instructions Stand Alone Forms: Work Excuse Prescriptions: predniSONE [Prednisone] 40 mg PO DAILY 4 Days tablet
[2018-11-29 22:57] LABS: PLATELET COUNT 356 10^3/uL (150-400)
[2018-11-30] MEDS ORDERED: ALBUTEROL INH PREPACK MDI TAKEHOME ONE (00:02)
[2018-11-30 00:07] VITALS: BP 115/78
--- NOTE | 2018-11-30 06:55 | CPEKG ---
Test Reason : OPEN Blood Pressure : / mmHG Vent. Rate : 096 BPM Atrial Rate : 097 BPM P-R Int : 155 ms QRS Dur : 116 ms QT Int : 369 ms P-R-T Axes : 042 -24 038 degrees QTc Int : 467 ms Sinus rhythm Incomplete RBBB and LAFB Low voltage, precordial leads Confirmed by Catherine Gonzales ([id number]) on 11/30/2018 6:55:08 AM Referred By: Catherine Gonzales Confirmed By:Catherine Gonzales
== END 2018-11-30 00:22 | disposition home or self-care (01) ==
DX: J20.9 Acute bronchitis, unspecified (principal)
CPT/HCPCS: J7512

== ENCOUNTER 2019-01-06 11:43 | Emergency (ER) | payer OTHER | END 2019-01-06 13:35 | disposition home or self-care (01) ==